=== PATIENT | male | born 1970 | race African-American/Black ===

== ENCOUNTER 2022-02-17 10:31 | Emergency (ER) | payer BC, SELFPAY ==
[2022-02-17 10:33] VITALS: BP 126/91; PULSE 67; RESP 14; TEMP 36.3; O2SAT 100; BMI 24.3
[2022-02-17 10:43] VITALS: BP 126/86; PULSE 78; RESP 14; TEMP 36.6; O2SAT 99
--- NOTE | 2022-02-17 10:43 | EDS_ITS ---
HPI History of Present Illness Chief Complaint: Lower Extremity Injury Informant: patient Onset/Context/Timing Onset: Yesterday Context: Sudden Onset (while playing basketball) Timing: Continuous Quality of Pain: Aching Location: R calf/achilles Current Severity: Mild Maximum Severity: Severe Worsened by: walking Relieved by: resting Associated Symptoms Associated Symptoms: Positive for Loss of Funtion; Negative for Parasthesia or W eakness Narrative Narrative: Patient states he was playing basketball last night, he suddenly pivoted to change directions and he states it felt like someone threw something or hit him in the right Achilles with sudden onset of pain and trouble walking after that. He suspects he ruptured it. No fall or direct trauma. PFSH PFSH no medical history Allergy/AdvReac Type Severity Reaction Status Date / Time No Known Allergies Allergy Verified 02/17/22 10:35 no surgical history ROS ROS ED Constitutional Constitutional ED: Denies chills or fever(s) Musculoskeletal Musculoskeletal: Reports extremity pain; Denies neck pain Integumentary Denies Abrasions, rash or wounds Neurologic Neurologic: Denies paresthesias or weakness EXAM Physical Exam Const Vital Signs: 02/17/22 10:33 Temperature 97.4 F L Temperature Source Temporal Pulse Rate 67 Respiratory Rate 14 Blood Pressure 126/91 H Blood Pressure Mean 102 Pulse Ox 100 Oxygen Delivery Method Room Air Positive well nourished and well developed General Appearance ED: well developed and NAD Neck full ROM and supple Back/Spine normal ROM and normal to inspection Extremity normal to inspection Extremity Narrative: Normal contour of Achilles on the right. Tender distal calf no edema, no palpable cords. With the patient prone, he has an abnormal Cifuentes test on the right. He has the inability to plantarflex normally but he can dorsiflex well. Neurovascularly intact distally. Neuro oriented x3, no focal motor deficits and no sensory deficits noted Sensorium / Orientation: alert Psych mental status grossly normal and thought process normal Skin no wounds Rashes: no rashes MDM MDM MDM Narrative Medical decision making narrative: Consistent with an Achilles rupture hopefully partial. Patient placed in an orthotic walking boot, given ibuprofen and appropriate discharge instructions with work restriction letter, and follow-up with orthopedics. Discharge Plan Triage Chief Complaint: Lower Extremity Injury ED Provider: Chavez Flores Dx/Rx/DC Orders Clinical Impression: Achilles rupture, right Instructions: Achilles Tendon Rupture Referrals: Knapic,Amos, DO [Med Staff - Active Staff] - As soon as possible (call for appt (or first available orthopaedic surgeon)) Activity Restrictions/Additional Instructions: Weightbearing as tolerated while in the boot, we recommend avoiding ladders, but if you can do your job while in the boot otherwise, then that is fine. Use the included work note if needed. Disposition Disposition: Home, Self Care
[2022-02-17] MEDS: Ibuprofen 600 MG Tablet PO (11:16)
== END 2022-02-17 11:21 | disposition home or self-care (01) ==
LOC: ED 11:03
PROVIDERS: Emergency Provider Emergency Medicine; Visit Provider Emergency Medicine
DX: S86.011A Strain of right Achilles tendon, initial encounter (principal); Y93.67 Activity, basketball
CPT/HCPCS: 99283

== ENCOUNTER 2022-05-29 07:30 | Outpatient (RCR) | payer BC, SELFPAY ==
--- NOTE | 2022-04-11 12:21 | HP.PTEVAL ---
Patient's Visit Information VARSHA GUZMAN is a 52 year old M referred to Physical Therapy by ROSS OTT with a diagnosis of Achilles Tendon Repair Feb 28, 2022. Date of Evaluation: 04/11/22 Physical Therapist: Deborah Greco DPT - Visit Plan Frequency: 2x /Week Duration: 4 Weeks Plan: Calling MD for Protocol. HEP Given IE: Gait Training, Ankle ROM Ex, Seated HR/TR, weight shifting in boot - Subjective Tore Achilles playing basketball Feb 23, 2022- repaired 7 weeks ago. Saw the MD about a week ago and he told him he is WBAT in his boot and does not have heel lift. Only wears the boot a couple of hours a day- clean the house- yesterday he used one crutch with the boot. If he is up and moving he has the boot on. He does have pain when he puts weight though the LE. He has some weird nerve issues- N/T or cramping- mostly in the foot but does travel up to incision. He does have some rare sharp shooting pain. Worst: 04/17 Agg: being up on it. Eases: putting lotion around the incision site. Most of the time he is painfree. He is more pretty active. He does go to the gym on a normal basis. Full I prior to injury. He has someone to take him too/from apts. 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 He feels that his mobility is getting better. Sleep: not disturbed. PMHx: dislocated left hip approx 30 years ago but it doesn't bother him Meds: none - Objective Posture: FH, RS- can correct with verbal cues. Gait: axillary crutches- step to gait pattern- reports discomfort. Observation: ill fitting boot- too large lots of movement- good healing of incision. HR/TR: seated. SLS: weight shift in boot. ROM: DF: neutral, PF: 40 degrees, Ever: 20 degrees, Inc: 40 degrees. Strength: Ankle: 4/5 in available range, Knee: 5/5. Girth: Mall: 26 Mets: 24 Figure 8: 52cm - Balance/Special Test Scores Lower Extremity Functional Score: 28 - Goals Goal 1:: Patient will be I with HEP and progression Goal Time Frame: 4-6 Weeks Goal 2:: Patient will ambulate >300 feet with a normalized gait pattern Goal Time Frame: 4-6 Weeks Goal 3:: Patient will SLS for 15 sec without LOB Goal Time Frame: 4-6 Weeks Goal 4:: Patient will HR/TR without UE A Goal Time Frame: 4-6 Weeks Goal 5:: Patient will report 80% improvement Goal Time Frame: 4-6 Weeks - Rehabilitation Potential Physical Therapy Diagnosis: Patient presents with hypomobility- he has decreased LE ROM, strength, flex, proprioception and muscular endurance s/p Achilles Tendon repair leading to abnormal gait pattern Rehabilitation Potential: Good - Anticipated Interventions Patient/Client Instruction: Educate patient on: Benefits of Fitness Program Therapeutic Exercise to Include: Strength training, Endurance training, Balance training, Coordination, Agility training, Body mechanics, Postural training, Flexibilty training, Gait and locomotor training, Neuromotor development, Passive ROM, Active ROM, Dynamic Lumbar Stabilization TENS: Yes Cryotherapy (ice pack, ice massage): Yes Thermo therapy (hot pack): Yes Ultrasound (thermal/non thermal): No Thank you for the opportunity to evaluate your patient. For Medicare and Medicare HMO plans, please review the plan of care and approve it. It will need to be FAXED BACK to us at [phone] for Medicare purposes. For Medicare only, by signing this I certify the plan of care. Please let me know if there are questions or concerns regarding this plan of care. Physician Signature: Date:
--- NOTE | 2022-05-11 11:37 | HP.PTREVAL ---
ROSS OTT, It has been my pleasure to treat VARSHA GUZMAN over the last 10 visits for Achilles Tendon Repair Feb 28, 2022. Please see the progress note below for an update on the physical therapy plan of care! Subjective: Patient reports that he feels the ankle is getting better. He had his last apt with MD on Saturday- he said he does not have another apt until the beginning of August- he said no running or jumping. He feels that he is still struggling with single leg activities. His whole calf is sore all the time- more like worked out. Current HEP: going to the gym a couple of times a week- last Saturday had a bad go with challenges. Gastroc stretching and SLS. 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 Objective/Function: Gait: slightly antalgic- decreased stance on the right LE. HR/TR: able with UE A and does weight shift slightly to the left. SLS: 10 sec but does have increased sway and reports discomfort and instability. ROM: DF: 5 degrees PF: 40 degrees, Inv: 50 deg Ever: 20 deg. Strength: 4+/5 throughout Plan Plan: 05/11/22: Continue PT for 2x a week for 4 weeks- no running or jumping per pt report of MD. Calling MD for Protocol. HEP Given IE: Gait Training, Ankle ROM Ex, Seated HR/TR, weight shifting in boot Balance/Gait/Functional tests - Balance/Special Test Scores Lower Extremity Functional Score: 28 Goals Goal 1:: Patient will be I with HEP and progression Goal Time Frame: 4-6 Weeks Goal Progress: Progressing Goal 2:: Patient will ambulate >300 feet with a normalized gait pattern Goal Time Frame: 4-6 Weeks Goal Progress: Progressing Goal 3:: Patient will SLS for 15 sec without LOB Goal Time Frame: 4-6 Weeks Goal Progress: Progressing Goal 4:: Patient will HR/TR without UE A Goal Time Frame: 4-6 Weeks Goal Progress: Progressing Goal 5:: Patient will report 80% improvement Goal Time Frame: 4-6 Weeks Goal Progress: Progressing Anticipated Interventions Patient/Client Instruction: Educate patient on: Benefits of Fitness Program Therapeutic Exercise to Include: Strength training, Endurance training, Balance training, Coordination, Agility training, Body mechanics, Postural training, Flexibilty training, Gait and locomotor training, Neuromotor development, Passive ROM, Active ROM, Dynamic Lumbar Stabilization TENS: Yes Cryotherapy (ice pack, ice massage): Yes Thermo therapy (hot pack): Yes Ultrasound (thermal/non thermal): No Please do not hesitate to contact me at [phone] by phone or if you have questions or concerns regarding this new plan of care! Sincerely, TYLER BentleyT
--- NOTE | 2022-10-22 12:33 | HP.PTDCSUM ---
Discharge Summary D/C summary: It has been my pleasure to treat VARSHA GUZMAN referred by ROSS OTT, with the diagnosis of Achilles Tendon Repair Feb 28, 2022 for a total of 15 visit(s). Discharge Date: Please see the following information for a summary of their discharge status. Subjective Subjective: Getting better. Just usual morning stiffness coming in. States compliant with HEP. Changed approved visit # per Monica - pt on [employer] Package and paying as he goes OOP. Pain Medial and lateral R ankle: Pain Intensity (Out of 10): 0 Overall Improvement % Improvement: 50 Objective Objective/Function: Pt conts to do very well in therapy for Right ankle stabilization, strength, and ROM. Increased height for fwd step down, working greater ROM. Goals Goal 1:: Patient will be I with HEP and progression Goal Progress: Progressing Goal 2:: Patient will ambulate >300 feet with a normalized gait pattern Goal Progress: Progressing Goal 3:: Patient will SLS for 15 sec without LOB Goal Progress: Progressing Goal 4:: Patient will HR/TR without UE A Goal Progress: Progressing Goal 5:: Patient will report 80% improvement Goal Progress: Progressing Plan Plan: 05/11/22: Continue PT for 2x a week for 4 weeks- no running or jumping per pt report of MD Calling MD for Protocol D/C Information d/c sentence: If there are questions or concerns regarding this patient's physical therapy, please feel free to call me at [phone]. Thank you for the referral of this patient. Sincerely, Deborah Greco, DPT Balance/Gait/Functional tests Balance/Special Test Scores Lower Extremity Functional Score: 50
== END 2022-05-29 19:00 | disposition home or self-care (01) ==
LOC: PT 07:30
DX: M25.371 Other instability, right ankle; S86.011D Strain of right Achilles tendon, subsequent encounter
CPT/HCPCS: 97110; 97162; 97164

== ENCOUNTER 2023-05-17 07:24 | Day surgery (SDC) | payer BC, SELFPAY ==
[2023-05-17] VITALS (8 sets, daily range): BP systolic 85–118; BP diastolic 49–76; PULSE 55–71; RESP 14–16; TEMP 36.1–36.6; O2SAT 96–100; BMI 25.7
--- OUTSIDE RECORDS SUMMARY | 2023-05-17 07:35 | XMS RPT_ITS | CCD ---
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 Automatic Name Role Phone ROSS OTT Attending Unavailable ROSS OTT Admitting Unavailable HAL SCHRADER Primary Care Unavailable IZZY SUBRAMANIAN Attending Unavailable Allergies Allergy Classification Reported Allergen(s) Allergy Type Date of Onset Reaction(s) Facility (1 source) Aspirin; Translations: [ASPIRIN] Drug Allergy 2 [facility] Rep[facility] (1 source) Ciprofloxacin; Translations: [CIPROFLOXACIN] Drug Allergy 2 [facility] Repository (1 source) PABA PLUS SUNSCREEN; Translations: [PABA PLUS SUNSCREEN] Propensity to adverse reactions to drug (disorder) 6 [facility] Repository Problems Problem Classification Problem Date Documented Da te Episodic/Chronic Sprains and strains (1 source) Strain of right Achilles tendon, initial encounter; Translations: [Rupture Achilles tendon, right, initial encounter] Onset: 02-21-2022 Episodic Results Test Name Value Interpretation Reference Range Facil ity Encounters Encounter Date Encounter Type Care Provider Facility Start: 04-19-2023 End: 04-22-2023 ambulatory IZZY SUBRAMANIAN Facility:[facility] Start: 02-21-2022 End: 02-21-2022 ambulatory ROSS OTT Facility:[facility] Payers Date Payer Category Payer Unknown [id number] Clinical Note 02-21-2022 Note Date & Type Note Facility 02-21-2022 Note HNO ID: [id number] Author: Rodolfo Whittaker APRN.COMMUNICATIONS ADMINISTRATOR Service: Anesthesiology Author Type: Nurse Design Technology Professor Type: Anesthesia Procedure Notes Filed: 02/21/2022 11:35 AM Note Text: ANESTHESIOLOGY PROCEDURE NOTE PIV General Information Procedure Start Time/Medication Administration: 02/21/2022 11:35 AM Patient Location: OR Staffing COMMUNICATIONS ADMINISTRATOR: Rodolfo Whittaker APRN.COMMUNICATIONS ADMINISTRATOR Performed by: COMMUNICATIONS ADMINISTRATOR Preparation Sterility Preparation: hand hygiene performed prior to procedure, sterile gloves, drapes, and procedure tray, gown used during line insertion, surgical cap used, mask used, sterile drape used during line insertion, skin prep agent completely dried prior to procedure Site Prep: alcohol Procedure Details Indication: need for IV access Needle Size/Type: 18 gauge angiocath Orientation: Right Location: Forearm Imaging Guidance Used: No SIGNATURE: Rodolfo Whittaker APRN.CRNA PATIENT NAME: Nathan Flores DATE: February 21, 2022 TIME: 11:34 AM CSN: [id number] [facility] Clinical Note 02-21-2022 Note Date & Type Note Facility 02-21-2022 Note HNO ID: [id number] Author: Wagner Holliday MD Service: ? Author Type: Anesthesiologist Type: Anesthesia Procedure Notes Filed: 02/21/2022 11:16 AM Note Text: ANESTHESIOLOGY PROCEDURE NOTE Peripheral Nerve Block General Information Procedure Start Time/Medication Administration: 02/21/2022 10:16 AM Procedure End time: 02/21/2022 10:20 AM Patient location during procedure: PACU Timeout Performed Pre-procedure: timeout performed Consent Obtained: Yes Patient identity confirmed: arm band and patient Reason for block: post-op pain management/at surgeon's request Staffing Anesthesiologist: Wagner Holliday MD Performed by: anesthesiologist Preparation Sterility Preparation: hand hygiene performed prior to procedure, sterile gloves, drapes, and procedure tray, surgical cap used, mask used, sterile drape used during line insertion, skin prep agent completely dried prior to procedure Site Prep: Chloraprep Pre-Procedure Neuro Exam Location: RLE Sensory: intact Motor: intact Procedure Details Patient Position: prone Monitoring: Pulse OX, EKG and NIBP Block Type Lower Extremity: popliteal Laterality: right Injection Technique: single-shot Ultrasound Guided: Yes Image in Chart: yes Local Infiltration: Yes Needle Needle Type: echogenic Needle Gauge: 20 G Needle Length: 83 mm Assessment Injection assessment: negative aspiration, no paresthesia on injection, incremental injection and local visualized surrounding nerve on ultrasound Paresthesia: immediately resolved Post-Procedure Neuro Exam Expected Regional Anesthesia: Yes Medications Administered ropivacaine (PF) 5 mg/mL (0.5 %) injection (NAROPIN) - peripheral nerve block 10 mL - 02/21/2022 10:16:00 AM dexamethasone sodium phosphate injection (DECADRON) - peripheral nerve block 4 mg - 02/21/2022 10:16:00 AM SIGNATURE: Wagner Holliday MD PATIENT NAME: Nathan Flores DATE: February 21, 2022 TIME: 11:14 AM CSN: [id number] [facility] Clinical Note 02-21-2022 Note Date & Type Note Facility 02-21-2022 Note HNO ID: [id number] Author: Rodolfo Whittaker APRN.COMMUNICATIONS ADMINISTRATOR Service: Anesthesiology Author Type: Nurse Design Technology Professor Type: Anesthesia Procedure Notes Filed: 02/21/2022 11:02 AM Note Text: ANESTHESIOLOGY PROCEDURE NOTE Airway General Information Procedure Start Time/Medication Administration: 02/21/2022 10:46 AM Patient location during procedure: OR Staffing COMMUNICATIONS ADMINISTRATOR: Rodolfo Whittaker APRN.COMMUNICATIONS ADMINISTRATOR Performed by: KLARISSA Indications and Patient Condition Indications for airway management: anesthesia Preoxygenated: yes anesthesia circuit Method: sleep Difficult Mask: No Final Airway Details Final airway type: endotracheal airway Final Endotracheal Airway: ETT Cuffed: yes Successful intubation technique: direct laryngoscopy Blade: Adam Blade size: #4 ETT size (mm): 7.5 Measured from: lips Measurement (cm): 22 Placement verified by: capnometry Cormack-Lehane Classification: grade IIa - partial view of glottis Number of attempts at approach: 1 Airway not difficult SIGNATURE: Rodolfo Whittaker APRN.COMMUNICATIONS ADMINISTRATOR PATIENT NAME: Nathan Flores DATE: February 21, 2022 TIME: 11:02 AM CSN: [id number] [facility] Summary Purpose Family History No Family History Records FoundNo Family History Records FoundNo Family History Records Found Advance Directives No Advanced Directives Records FoundNo Advanced Directives Records FoundNo Advanced Directives Records Found Additional Source Comments (unrecognized sect ion and content) No Status Records FoundNo Status Records FoundNo Status Records Found INFORMATION SOURCE (unrecogn ized section and content) DATE CREATED AUTHOR AUTHOR'S ORGANIZ ATION 04/22/2023 [facility] DATE CREATED AUTHOR AUTHOR'S ORGANIZ ATION 04/29/2023 [facility] FOR RECORDS PERTAINING TO PATIENTS WHO ARE OR HAVE BEEN ENROLLED IN A CHEMICAL DEPENDENCY/SUBSTANCEABUSE PROGRAM, SOME INFORMATION MAY BE OMITTED. This clinical summary was aggregated from multiple sources. Caution should be exercised in using it in the provision of clinical care. This summary normalizes information from multiple sources, and as a consequence, information in this document may materially change the coding, format and clinical context of patient data. In addition, data may be omitted in some cases. CLINICAL DECISIONS SHOULD BE BASED ON THE PRIMARY CLINICAL RECORDS. [employer] [facility]. provides no warranty or guarantee of the accuracy or completeness of information in this document.
[2023-05-17] MEDS: Lactated Ringers 1,000 ML 15 ML IV (07:57)
--- NOTE | 2023-05-17 08:05 | PCM.HP.STD ---
[facility] - General General Date of Service: 05/17/23 Chief Complaint: Screening for intestinal cancer [facility] Narrative VARSHA GUZMAN, is a 53 M who presents for screening colonoscopy today. He has not had a previous one. Family history is notable for a maternal uncle and maternal grandmother who had colon cancer. He presents via open access today. He enjoys good health. He is otherwise asymptomatic. [facility] Medical History Alcohol use Family hx of colon cancer Non-smoker Refusal of blood transfusions as patient is Restoration Wears glasses Home Medications omega-3 fatty acids-fish oil 360 mg-1,200 mg capsule (Fish Oil) 1 cap PO DAILY 04/03/23 [History Last Taken Unknown] bupropion HCl 100 mg tablet,12 hr sustained-release 100 mg PO DAILY 05/14/23 [History Last Taken 05/17/23] Allergy/AdvReac Type Severity Reaction Status Date / Time No Known Allergies Allergy Verified 05/17/23 07:55 Family History (Updated 04/03/23 @ 09:12 by Kavita Holliday) Mother Alcoholism Father Hypertension Grandmother Colon cancer Uncle Colon cancer Surgical History Achilles rupture History of Achilles tendon repair Social History adopted: No household members: spouse housing: house number of children: 0 current occupational status: employed 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 current occupational exposures/hazards: No pets and animals: Yes leisure activities: exercise, clubs and music history of recent travel: No sexually active: Yes Smoking Status: Never smoker alcohol intake: current details: weekly substance use type: does not use well-balanced diet: daily or most days caffeine: Yes eating out: 4 or more times/week during the past year weight has: increased > 10 lbs what type of physical activity do you participate in: weight training frequency: 3-4 times per week reed/muslim: Brennanhovah Witness seatbelt use: always do you feel safe at home: Yes ROS Constitutional Constitutional: Reports systems reviewed and no addt'l complaints, except as documented Cardiovascular Cardiovascular: Denies chest pain Respiratory/Chest Respiratory/Chest: Denies shortness of breath at rest Gastrointestinal Gastrointestinal: Denies abdominal pain, change in bowel habits, hematochezia or melena Vital Signs Vital Signs Vital Signs: 05/17/23 07:58 05/17/23 07:58 Temperature 97.8 F Temperature Source Temporal Pulse Rate 71 Respiratory Rate 16 Respiratory Pattern Normal Blood Pressure 118/76 Blood Pressure Mean 90 Blood Pressure Source Monitor Blood Pressure Position Semi-Fowlers Blood Pressure Location Left Arm Pulse Ox 100 Oxygen Delivery Method Room Air Weight Weight: 174 lb 2.643 oz Body Mass Index (BMI) 25.7 Physical Exam Const alert, oriented x3 and no apparent distress General Appearance: cooperative and comfortable Eyes General Eye: normal appearance of both eyes Neck General: normal visual inspection Chest inspection of chest normal Resp Effort and Inspection: able to speak in complete sentences and symmetric chest movement Auscultation: clear to auscultation bilaterally Cardio regular rate and regular rhythm GI soft to palpation, non-tender and non-distended Extremity no calf tenderness Neuro oriented x3 Psych thought process normal Assessment & Plan Assessment/Plan (1) Encounter for screening for malignant neoplasm of colon: PLAN: The patient presents for screening colonoscopy today with possible biopsy or polypectomy as indicated. He presents via open access. He has had an opportunity to ask and have questions answered. We will proceed as noted. Triston Peter M.D., F.A.C.S.
--- NOTE | 2023-05-17 09:00 | OP.CCLET_ITS ---
05/17/2023 Roberta Burnette [facility] [address] [place] [address] Re : Colonoscopy procedure for Nathan Hernnádez Dear Dr. Burnette This procedure was performed on Wednesday, May 17, 2023. My impressions and recommendations are as follows: Impressions : - Hemorrhoids found on perianal exam. - The entire examined colon is normal. - No specimens collected. Recommendations : - Discharge patient to home. - Resume previous diet. - Continue present medications. - Repeat colonoscopy in 10 years for screening purposes. My findings are described in the full procedure note, which is enclosed. If I can be of further assistance, please feel free to contact me at Doctor phone number(s): Work: . Sincerely, Triston Peter MD 05/17/2023 9:00:03 AM This report has been signed electronically.
--- NOTE | 2023-05-17 09:00 | OP.COLON_ITS ---
Patient Name: Nathan Hernández Procedure Date: 05/17/2023 8:34 AM Date of : 1970 Age: 53 Procedure: Colonoscopy Indications: Screening for colorectal malignant neoplasm Providers: Triston Peter MD Referring MD: Roberta Burnette Medicines: See the Anesthesia note for documentation of the administered medications Patient Profile: Last Colonoscopy: none. The patient's first colonoscopy is today. Complications: No immediate complications. Procedure: Pre-Anesthesia Assessment: - Prior to the procedure, a History and Physical was performed, and patient medications and allergies were reviewed. The patient's tolerance of previous anesthesia was also reviewed. The risks and benefits of the procedure and the sedation options and risks were discussed with the patient. All questions were answered, and informed consent was obtained. Prior Anticoagulants: The patient has taken no anticoagulant or antiplatelet agents. ASA Grade Assessment: I - A normal, healthy patient. After reviewing the risks and benefits, the patient was deemed in satisfactory condition to undergo the procedure. After I obtained informed consent, the scope was passed under direct vision. Throughout the procedure, the patient's blood pressure, pulse, and oxygen saturations were monitored continuously. The colonoscope was introduced through the anus and advanced to the cecum, identified by appendiceal orifice and ileocecal valve. The colonoscopy was performed without difficulty. The patient tolerated the procedure well. The quality of the bowel preparation was good. The ileocecal valve and the appendiceal orifice were photographed. Scope In: 8:43:49 AM Scope Withdrawal Time 0 hours 7 minutes 39 seconds Scope Out: 8:55:45 AM Total Procedure Duration Time 0 hours 11 minutes 56 seconds Findings: Hemorrhoids were found on perianal exam. The digital rectal exam was normal. Pertinent negatives include normal prostate (size, shape, and consistency). The colon (entire examined portion) appeared normal. Impression: - Hemorrhoids found on perianal exam. - The entire examined colon is normal. - No specimens collected. Recommendation: - Discharge patient to home. - Resume previous diet. - Continue present medications. - Repeat colonoscopy in 10 years for screening purposes. Procedure Code(s): --- Professional --- 01762, Colonoscopy, flexible; diagnostic, including collection of specimen(s) by brushing or washing, when performed (separate procedure) Diagnosis Code(s): --- Professional --- Z12.11, Encounter for screening for malignant neoplasm of colon K64.9, Unspecified hemorrhoids CPT copyright 2021 [employer]. All rights reserved. The codes documented in this report are preliminary and upon director reactor projects review may be revised to meet current compliance requirements. Triston Peter MD 05/17/2023 9:00:03 AM This report has been signed electronically. Number of Addenda: 0 Note Initiated On: 05/17/2023 8:34 AM
== END 2023-05-17 09:58 | disposition home or self-care (01) ==
LOC: EN 07:26 → AC 07:27
PROVIDERS: PCP Internal Medicine; Referring Provider Internal Medicine; Visit Provider Surgery
PROC: 0DJD8ZZ Inspection of Lower Intestinal Tract, Via Natural or Artificial Opening Endoscopic (ICD-10-PCS; CPT 45378; principal; 2023-05-17 08:25)
DX: Z12.11 Encounter for screening for malignant neoplasm of colon (principal); K64.9 Unspecified hemorrhoids; Z80.0 Family history of malignant neoplasm of digestive organs
CPT/HCPCS: 45378; J7120; J2405

== ENCOUNTER → 2024-10-23 | Outpatient (CLI) | payer BC, SELFPAY ==
--- NOTE | 2024-10-23 12:14 | RAD_ITS ---
PROCEDURE: CHEST PA AND LATERAL 10/23/2024 REASON FOR EXAM: CHRONIC COUGH TECHNIQUE: CHEST PA AND LATERAL COMPARISON: None FINDINGS: Hardware: None Heart: Heart size and configuration within normal limits. Mediastinum: Pulmonary vasculature and hilar structures are unremarkable. Trachea is midline. Lungs: Lungs are expanded and clear without evidence of atelectasis, consolidation, effusion or pneumonic infiltrate. Bones: No acute bony abnormality is noted. There is a subtle levoscoliosis of the lower thoracic spine and dextroscoliosis of the lumbar spine. Soft tissues are grossly unremarkable. RAD/Chest PA and Lateral IMPRESSION: No acute cardiopulmonary process is identified radiographically. Reading Location: [id number]
--- OUTSIDE RECORDS SUMMARY | 2024-10-23 16:33 | XMS RPT_ITS | CCD ---
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 EYES: No diplopia or blurry vision. CARDIOVASCULAR: No chest pain, dyspnea, palpitations, orthopnea, PND, ankle edema. PULM: No dyspnea, unexplained cough. GI: No dysphagia/odynophagia, problematic reflux, constipation, diarrhea, changes in stool habits, hematochezia, melena. : No new urinary complaints, including dysuria, gross hematuria or pyuria. NEURO: No new balance problems, peripheral weakness/paresthesias or numbness of concern. MUSC-SKEL: swelling RT ankle an ahcilles positive renae test pain posteiro achilles PSY: No concerns regarding depression, anxiety or panic. INTEGUMENTARY: No new skin changes (rash, new or changing mole, new growth) Objective PHYSICAL EXAM: BP 119/78 Temp (Src) 98.2 (Temporal Artery) Resp 16 SpO2 100% O2 Therapy: Room Air Physical Exam Performed Lungs CABL Heart RRR Pulses +2/4 DP PT bl Neuro All sensations intact bl DERM no open wounds rt lower leg plus 1 non pitting edema MS MS 3/5 RT achilles plantar flexin, palpable defect Achilles RT DATA: Diagnostic tests reviewed for today's visit: Most recent labs Assessment/Plan Rupture RIght achilles tendon Plan Repair achilles tendon RT OR SIGNATURE: Curt Ott DPM PATIENT NAME: Varsha Flores DATE: February 21, 2022 TIME: 9:49 AM Normal [facility] NURSING PROGon 02-21-2022 NURSING PROG HNO ID: [id number] Author: Karlie Pritchett RN Service: Nursing Author Type: Registered Nurse Type: Nursing Progress Note Filed: 02/21/2022 11:57 AM Note Text: Dr. Holliday at bedside for Ultrasound guided Right popliteal nerve block. RN at bedside, pt monitored throughout, BP 118/70 Pulse 65 Temp 36.8 ?C (98.2 ?F) (Temporal Artery) Resp 16 SpO2 100% . Pt medicated with 2mg versed IV. Pt tolerated procedure without difficulty. Family called to bedside at completion of procedure. Report to SENIOR TECHNICAL RECRUITER Normal [facility] OPERATIVE NOon 02-21-2022 OPERATIVE NO HNO ID: [id number] Author: Curt Ott DPM Service: Podiatry Author Type: Physician Type: Operative Report Filed: 02/22/2022 9:12 AM Note Text: - Operative Report VARSHA FLORES : 1970 AGE: 52. SEX: M PATIENT TYPE: A HOSP SVC: PODI LOCATION: ATTENDING PHYSICIAN: Curt Ott D.P.M. CSN NUMBER: [id number] DATE OF SURGERY/PROCEDURE: 02/21/2022 INCISION/PROCEDURE START TIME: 11:03 AM INCISION CLOSE/PROCEDURE END TIME: 12:02 PM PREOPERATIVE DIAGNOSIS: Ruptured Achilles tendon, right ankle; ankle Achilles tendinosis; ankle pain. POSTOPERATIVE DIAGNOSIS: Same SURGEON: Curt Ott D.P.M. FELLER SEAM OPERATOR: 1Ligia Fisher, PGY 3. 2. Second customer assistant, Dr. Gayle, PGY 1. SURGERY/PROCEDURE: 1. Repair of Achilles tendon. 2. Graft application with Interfyl connective tissue matrix graft. 3. Application of posterior splint. ANESTHESIA: General in the prone position. INDICATIONS FOR SURGERY: This patient ruptured his Achilles tendon playing basketball this past Saturday. On Saturday, he went to the ER. He was put in a boot. He presented to the office on Saturday. We set him up after evaluating him for surgery for repair of the Achilles tendon. We are also going to use Interfyl connective tissue graft and we went over alternatives, risks, complications, and benefits of procedure including possible need for revision, lengthening and we talked about the need for strict nonweightbearing, then physical therapy, he understood. In the preoperative area, consent was signed. HEMOSTASIS: We did not go up on the tourniquet. ESTIMATED BLOOD LOSS: Less than 20 mL. DRAINS: No drains. SPECIMENS: No specimens. COMPLICATIONS: No complications. MATERIALS: PARS [employer] system. DESCRIPTION OF PROCEDURE: The patient was brought to the operating room and placed on the operating table in supine position. Upon administration of general anesthesia, the patient had the right foot and ankle scrubbed, prepped, and draped in a normal sterile fashion. It was noted that the patient was put in the prone position before we did this. Next, at this time, after positioned the patient in proper position, we then scrubbed, prepped, and draped in normal sterile fashion. It was noted that we were doing more of a minimal invasive approach to this. We made a transverse incision at the ruptured area. We bluntly dissected down. It was noted that we did not go up on the tourniquet and we were doing this mostly noninvasive so at this time, we incised through the skin, through the fascia. We then cauterized all bleeders as necessary, bluntly dissected down. We opened up the paratenon, there was noted to be a 90% rupture of the Achilles tendon. There was a small area partially attached on the most medial aspect, which we then released. It was noted that we then freshened the Achilles tendon edges. There was noted to be a small little hematoma at the rupture site that we cleaned out. Next, at this time, we irrigated the soft tissues. There was noted to be healthy paratenon, healthy tendon otherwise. Next, at this time, we then started preparing for our repair of the tendon. We used the PARS technique from [employer] and put the jig up proximally into the proximal rupture site and then we ran our suture following their technique, which bring sutures through and then once the sutures were through on both sides of the tendon, we pulled the jig down and out, which then bring the suture down. Now we had a nice proximal stump. We then worked distal. We made 2 incisions on the medial and lateral aspects of the Achilles tendon and then we drilled into the calcaneus and tapped this drill. Next, at this time, we put in a suture passer through the distal rupture some, which would then have a vessel loop which will pull our proximal suture through the distal stump and then we anchored into the heel bone. So, we then entered the suture passer, grabbed distally as stated and we pulled the sutures through the distal stump. Next, at this time, we then tensioned with a SwiveLock anchor into the calcaneus with the ankle about in 10-15 degrees of plantar flexed, bringing the coapted ends together. We then locked this in place and we cut the excess suture. We then repeated this in the same way on the lateral side. Next, after this we had excellent repair of the tendons, the ends were coapted. We are going to keep the foot and ankle position in about 10 degrees plantar flex for splint application. However, before we did this, we irrigated with copious amounts of normal saline. We then closed the paratenon with 3-0 Vicryl, subcutaneous tissue with 4-0 Vicryl, and the skin with 3-0 nylon in a simple suturing fashion. Then, we closed our ankle portals with 3-0 nylon as well. Next, at this time, we then injected 3 mL of Interfyl human connective tissue into the Achilles (more content not included)... Normal [facility] Vital Signs Date Time Vital Sign Value Performing Clinician Aleki kadie 10-22-2024 08:03-0400 Body height 175.[address] Roberta Burnette MD Work Phone: [facility] 10-22-2024 08:03-0400 Body mass index (BMI) [Ratio] 25.5 kg/m2 Dr. Roberta Burnette MD Work Phone: [facility] 10-22-2024 08:03-0400 Body temperature 98.4 [degF] Dr. Roberta Burnette MD Work Phone: [facility] 10-22-2024 08:03-0400 Body weight 78.[address] Roberta Burnette MD Work Phone: [facility] 10-22-2024 08:03-0400 Diastolic blood pressure 80 mm[Hg] Dr. Roberta Burnette MD Work Phone: [facility] 10-22-2024 08:03-0400 Heart rate 70 /min Dr. Roberta Burnette MD Work Phone: [facility] 10-22-2024 08:03-0400 Respiratory rate 16 /min Dr. Roberta Burnette MD Work Phone: [facility] 10-22-2024 08:03-0400 SaO2% (BldA) [Mass fraction] 97 % Dr. Roberta Burnette MD Work Phone: [facility] 10-22-2024 08:03-0400 Systolic blood pressure 116 mm[Hg] Dr. Roberta Burnette MD Work Phone: [facility] 09-25-2024 13:07-0400 Body height 175.3 cm Izzy Bonner MD Work Phone: [facility] 09-25-2024 13:07-0400 Body mass index (BMI) [Ratio] 25.99 kg/m2 Izzy Bonner MD Work Phone: [facility] 09-25-2024 13:07-0400 Body weight 79.83 kg Izzy Bonner MD Work Phone: [facility] 09-25-2024 13:07-0400 Respiratory rate 16 /min Izzy Bonner MD Work Phone: [facility] 06-19-2024 14:03-0400 Body height 177.8 cm Izzy Bonner MD Work Phone: [facility] 06-19-2024 14:03-0400 Body mass index (BMI) [Ratio] 25.08 kg/m2 Izzy oBnner MD Work Phone: [facility] 06-19-2024 14:03-0400 Body weight 79.29 kg Izzy Bonner MD Work Phone: [facility] 06-19-2024 14:03-0400 Diastolic blood pressure 80 mm[Hg] Izzy Bonner MD Work Phone: [facility] 06-19-2024 14:03-0400 Heart rate 68 /min Izzy Bonner MD Work Phone: [facility] 06-19-2024 14:03-0400 Systolic blood pressure 129 mm[Hg] Izzy Bonner MD Work Phone: [facility] 04-10-2024 09:33-0500 Body height 175.3 cm Izzy Bonner MD Work Phone: [facility] 04-10-2024 09:33-0500 Body mass index (BMI) [Ratio] 25.1 kg/m2 Izzy Bonner MD Work Phone: [facility] 04-10-2024 09:33-0500 Body weight 77.11 kg Izzy Bonner MD Work Phone: [facility] 04-10-2024 09:33-0500 Respiratory rate 14 /min Izzy Bonner MD Work Phone: [facility] 08-29-2023 15:06-0400 Body height 175.3 cm Izzy Bonner MD Work Phone: [facility] 08-29-2023 15:06-0400 Body mass index (BMI) [Ratio] 25.1 kg/m2 Izzy Bonner MD Work Phone: [facility] 08-29-2023 15:06-0400 Body weight 77.11 kg Izzy Bonner MD Work Phone: [facility] 08-29-2023 15:06-0400 Respiratory rate 16 /min Izzy Bonner MD Work Phone: [facility] 05-17-2023 09:25-0500 Body temperature 97.6 [degF] Dr. Roberta Burnette Work Phone: [facility] 05-17-2023 09:25-0500 Diastolic blood pressure 71 mm[Hg] Dr. Roberta Burnette Work Phone: [facility] 05-17-2023 09:25-0500 Heart rate 62 /min Dr. Roberta Burnette Work Phone: [facility] 05-17-2023 09:25-0500 Respiratory rate 16 /min Dr. Roberta Burnette Work Phone: [facility] 05-17-2023 09:25-0500 SaO2% (BldA) [Mass fraction] 99 % Dr. Roberta Burnette Work Phone: [facility] 05-17-2023 09:25-0500 Systolic blood pressure 99 mm[Hg] Dr. Roberta Burnette Work Phone: [facility] 05-17-2023 07:58-0500 Body height 175.[address] Roberta Burnette Work Phone: [facility] 05-17-2023 07:58-0500 Body mass index (BMI) [Ratio] 25.7 kg/m2 Dr. Roberta Burnette Work Phone: [facility] 05-17-2023 07:58-0500 Body weight [address] Roberta Burnette Work Phone: [facility] 04-19-2023 13:13-0500 Body height 175.3 cm Izzy Bonner MD Work Phone: [facility] 04-19-2023 13:13-0500 Body weight 79.38 kg Izzy Bonner MD Work Phone: [facility] 04-19-2023 13:13-0500 Respiratory rate 16 /min Izzy Bonner MD Work Phone: [facility] 04-03-2023 09:15-0500 Body mass index (BMI) [Ratio] 26.6 kg/m2 Dr. Roberta Burnette Work Phone: [facility] 04-03-2023 09:15-0500 Body weight 81.[address] Roberta Burnette Work Phone: [facility] 02-17-2022 10:43-0500 Body temperature 97.8 [degF] [facility] Work Phone: 02-17-2022 10:43-0500 Diastolic blood pressure 86 mm[Hg] [facility] Work Phone: 02-17-2022 10:43-0500 Heart rate 78 /min [facility] Work Phone: 02-17-2022 10:43-0500 Respiratory rate 14 /min [facility] Work Phone: 02-17-2022 10:43-0500 SaO2% (BldA) [Mass fraction] 99 % [facility] Work Phone: 02-17-2022 10:43-0500 Systolic blood pressure 126 mm[Hg] [facility] Work Phone: 02-17-2022 10:33-0500 Body height 175.26 cm [facility] Work Phone: 02-17-2022 10:33-0500 Body mass index (BMI) [Ratio] 24.3 kg/m2 [facility] Work Phone: 02-17-2022 10:33-0500 Body weight 74.84 kg [facility] Work Phone: Encounters Encounter Date Encounter Type Care Provider Facility Start: 10-22-2024 End: 10-22-[address] Roberta Burnette MD Work Phone: -[facility] Start: 10-22-2024 End: 10-22-[address] Roberta Burnette MD -[facility] Work Phone: Start: 09-25-2024 End: 09-25-2024 ambulatory IZZY BONNER Facility:[facility] Start: 09-25-2024 End: 09-25-2024 Patient encounter procedure Izzy Bonner MD Work Phone: [facility] Comment on above: Generalized anxiety disorder (Primary Dx); Major depressive disorder, recurrent episode, moderate (HCC); Pornography addiction Start: 07-31-2024 End: 07-31-2024 ambulatory IZZY BONNER Facility:[facility] Start: 06-19-2024 End: 06-19-2024 ambulatory IZZY BONNER Facility:[facility] Start: 06-19-2024 End: 06-19-2024 Patient encounter procedure Izzy Bonner MD Work Phone: [facility] Comment on above: Major depressive dis order, recurrent episode, moderate (HCC) (Primary Dx); Generalized anxiety disorder; Pornography addiction Start: 04-10-2024 End: 04-10-2024 ambulatory IZZY BONNER Facility:[facility] Start: 04-10-2024 End: 04-10-2024 Patient encounter procedure Izzy Bonner MD Work Phone: [facility] Comment on above: Major depressive dis order, recurrent episode, moderate (HCC) (Primary Dx); Generalized anxiety disorder; Pornography addiction Start: 04-09-2024 End: 04-09-2024 Refill Izzy Bonner MD Work Phone: [facility] Comment on above: Refill Request Start: 08-29-2023 End: 08-29-2023 Patient encounter procedure Izzy Bonner MD Work Phone: [facility] Comment on above: Major depressive dis order, recurrent episode, moderate (HCC) (Primary Dx); Generalized anxiety disorder Start: 07-04-[address] Bautista Burnette MD Work Phone: [facility] Start: 07-04-2023 End: 07-04-2023 ambulatory Roberta [facility] Facility:[facility] Start: 05-31-2023 End: 05-31-2023 Patient encounter procedure Izzy Bonner MD Work Phone: [facility] Comment on above: Severe recurrent virgilio or depression without psychotic features (HCC) (Primary Dx); Generalized anxiety disorder Start: 05-17-2023 End: 05-17-2023 ambulatory Roberta Vasile Facility:[facility] Start: 05-17-2023 Non-patient / Non-visit Dr. Jody Burnette Work Phone: [facility] Start: 05-17-2023 End: 05-17-2023 Admission to same day surgery center Dr. Robreta Burnette Work Phone: [facility] Work Phone: Start: 05-17-2023 End: 05-17-[address] Roberta Burnette Work Phone: [facility] Work Phone: Start: 04-19-2023 End: 04-22-2023 ambulatory IZZY BONNER Facility:[facility] Start: 04-19-2023 Patient encounter procedure Izzy Bonner MD Work Phone: [facility] Comment on above: Severe recurrent virgilio or depression without psychotic features (HCC) (Primary Dx); Generalized anxiety disorder Start: 04-03-2023 ambulatory Roberta Burnette Facility :[facility] Start: 04-03-2023 Non-patient / Non-visit Dr. Jody Burnette Work Phone: [facility] Work Phone: Start: 02-21-2022 End: 02-21-2022 ambulatory [facility] Facility:[facility] Start: 02-17-2022 End: 02-17-2022 Emergency department patient visit [facility]Emer[facility] Department Procedures Date Procedure Procedure Detail Performing Clinician Start: 05-17-[address] Roberta Burnette Work Phone: Start: 06-03-2015 Lipid 1996 panel - S jazz or Plasma Izzy Bonner MD Work Phone: Plan of Treatment Date Care Activity Detail Author Start: 05-24-2025 Urine microalbumin profile DTaP,Tdap,Td Vaccine (2 - Td or Tdap) [facility] Start: 12-07-2024 Influenza vaccination Influenza Vaccine (Season Ended) [facility] Start: 10-23-2024 End: 10-23-2024 Patient encounter procedure 10/23/2024 1:30 PM EDT Psych [facility] [address] [place] [id number] Izzy Bonner MD [address] [address] [facility] Start: 07-31-2024 End: 07-31-2024 Patient encounter procedure 07/31/2024 1:00 PM EDT Psych Office Visit [facility] [address] [address] Izzy Bonner MD [address] [address] [facility] Start: 04-10-2024 End: 04-10-2024 Patient encounter procedure 04/10/2024 9:30 AM EST Office Visit [facility] [address] [address] Izzy Bonner MD [address] [address] [facility] Start: 12-08-2023 Covid-19 Vaccine ( season) Covid-19 Vaccine ( season) [facility] Start: 12-08-2023 Influenza vaccination [facility] Start: 05-17-2023 Patient discharge [facility] Start: 12-07-2022 Covid-19 Vaccine ( season) Covid-19 Vaccine ( season) [facility] Start: 12-07-2022 Influenza vaccination [facility] Start: 2021 Pneumococcal Vaccine: 50+ (1 of 1 - PCV) Pneumococcal Vaccine: 50+ (1 of 1 - PCV) [facility] Start: 2021 Shingrix Vaccine (1 of 2) Shingrix Vaccine (1 of 2) [facility] Start: 06-03-2020 Lipid panel Lipid Screening [facility] Start: 06-03-2020 Prostate specific antigen measurement Prostate Cancer Screening Discussion [facility] Start: 06-03-2018 Diabetes Screening Diabetes Screening [facility] Start: 01-14-2016 Screening for malignant neoplasm of colon [facility] Start: 1990 Hepatitis B Vaccine (1 of 3 - 19+ 3-dose series) Hepatitis B Vaccine (1 of 3 - 19+ 3-dose series) [facility] Start: 1989 Hepatitis C screening Hepatitis C Screening [facility] Start: 1989 HIV screening HIV Screening [facility] Start: 1970 Hepatitis B Vaccine (1 of 3 - 3-dose series) Hepatitis B Vaccine (1 of 3 - 3-dose series) [facility] Colonoscopy [facility] Patient Education Achilles Tendon Rupture [facility] Work Phone: Patient referral [facility] Work Phone: [facility] Immunizations Immunization Date Immunization Notes Care Provider Felicia calles 05-24-2015 tetanus toxoid, redu bryce diphtheria toxoid, and acellular pertussis vaccine, adsorbed Izzy Bonner MD Work Phone: [facility] Work Phone: Payers Date Payer Category Payer Self-pay 2023 Unknown [id number] 2018 [employer] BLUE ACCE PPO [id number] 2018 Unknown [id number] 2018 Unknown [employer] ACC[employer] PPO [id number] 2018-Present [phone] [address] [place] [address] PPO [id number] Unknown [facility] PACKAGE PLAN [id number] Unknown [id number] Unknown [id number] Unknown [id number] Unknown [id number] Social History Date Type Detail Facility Start: 02-17-2022 End: 05-14-2023 Tobacco smoking status MAIS Unknown if ever smoked [facility] Start: 1970 Sex Assigned At Male [facility] Start: 04-19-2023 End: 07-04-2023 Tobacco smoking status NHIS Never smoked tobacco [facility] Work Phone: Start: 04-19-2023 Tobacco use and exposure Smokeless tobacco non-user [facility] Work Phone: Start: 04-19-2023 End: 04-10-2024 Alcohol intake Current drinker of alcohol (finding) [facility] Start: 04-19-2023 End: 07-31-2024 History of Social function [facility] Start: 04-19-2023 End: 07-31-2024 Tobacco use panel [facility] National Score (1-10 0), lower number is lower risk Not on file [facility] Start: 06-14-2015 Alcohol Comment 5-6 drinks weekly Cl [facility] Start: 1970 Sex Assigned At Not on file [facility] Start: 09-25-2024 Alcoholic beverage intake Ex-drinker (finding) [facility] Medical Equipment Procedure Code Equipment Code Equipment Origin al Text Equipment Identifier Dates [id number] Im plant - [id number] Start: 02-21-2022 Imp Pars Suture Tape System - [id number] Start: 02-21-2022 Internalbrace Li gament Augmentation Repair Kit [id number] Start: 02-21-2022 Goals Date Patient Goal Desired Activity /State Mental Status Date Assessment Result Facility 05-17-2023 Cognitive function Touch/Shaking [facility] Work Phone: Clinical Notes 02-21-2022 to 09-25-2024 Izzy Bonner MD - 09/25/2024 1:00 PM Izzy Coon MD - 06/19/2024 2:00 PM Izzy Coon MD - 04/10/2024 9:30 AM ESTTelephone Encounter - Deborah Starkey MA - 04/09/2024 12:25 PM EST Note Date & Type Note Facility 09-25-2024 History of Presen t illness Narrative Images from the original note were not included. 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 Patient was accompanied by Self relapsed with porn once per week to every couple of days since 1m he was sober for 4 months prior to that immense guilt depressed tearful continues to be abstinent from pornography since 4 months has cravings - becoming less and less still struggles with traumatic memories with his mother difficulty letting go - but actually getting better Alc - 2 beer per week not in therapy - used to see [facility] Systems DEPRESSION: admits to Depression, rumination, psychomotor retardation, low motivation, guilty, anhedonia - severe Appetite: good Suicidal ideations: No Passive thoughts of wishing not to exist: No Access to fire arms: No GENERALIZED ANXIETY DISORDER: denies worries about various aspects of life, gets tense, irritability, inattentive, achy, and sleeplessness over worries. The symptoms have been going on for Years Symptoms overall are: worse PANIC ATTACKS: denies periods of intense anxiety accompanied with heart palpitations, shortness of breath, shaking, mind racing PTSD: admits to history of trauma that comes back as flashbacks, distressful recollections or memories , nightmares, hypervigilance, and avoidance Trauma was: emotional Timeline of Trauma: childhood still hinders outcome of mental health OCD: denies both obsessions and compulsions Sleep Schedule/Sleep ROS: Sleep: Patient Has restorative sleep Total perceived sleep time: 7-9h Excessive daytime sleepiness: No If yes - accidents or near accidents due to drowsy driving: No Patient Data Questionnaires [place] Sleepiness Scale (ESS) No data to display Generalized Anxiety Disorder Scale (DALLAS-7) 06/19/2024 07/31/2024 09/25/2024 [place] - 7 SCORES Score 11 2 14 (0-4) minimal anxiety, (5-9) mild anxiety, (10-14) moderate anxiety, (15-21) severe anxiety Patient Health Questionnaire (PHQ-9) 06/19/2024 07/31/2024 09/25/2024 PHQ-9 Score 6 2 8 (0-4) minimal depression, (5-9) mild depression, (10-14) moderate depression, (15-19) moderately severe depression, (20-27) severe depression Interim Changes in History: Changes in family history: No Changes in Social history: no Changes in Medical history: no 05/31/23 - settling in with job 08/29/23 - was let go from the job and he found a new job 04/10/23 - has addiction to porn since early on Medications buPROPion SR (WELLBUTRIN SR) 150 mg 12 hr tablet Take 2 tablets by mouth once daily. ciprofloxacin HCl (CIPRO) 500 mg tablet Take 500 mg in office prior to procedure-to be administered per clinical support. (Patient not taking: Reported on 09/03/2018) Allergies ALLERGIES Allergen Reactions Aspirin Intolerance Nausea and vomiting Ciprofloxacin Intolerance diarrhea Paba Plus Sunscreen Swelling, Other: See Comments blisters Vitals Resp 16 Ht 175.3 cm (5' 9) Wt 79.8 kg (176 lb) BMI 25.99 kg/m MSE The patient appeared stated age. Casually dressed. good hygiene. Behavior and attitude was pleasant, friendly and cooperative. Psychomotor down. Eye contact good. Speech wnl. Mood dysthymic. Affect restricted. Thought process perseverative. Thought content neg for any obsessions and/or delusions. The patient denied any suicidal or homicidal ideations, plan or intent. Auditory/visual/audio visual hallucinations not present. Attention and concentration was good. Insight and judgement were good. Patient was alert and oriented. Memory was grossly intact. Abstract reasoning was good. EXAM Physical Examination: garth weight for age Musculoskeletal: upper extremity strength within normal limits Neurological: gait and station normal Sensation: grossly intact Bilateral hand tremor: absent Risk Assessment: Suicide Risk Level: HML: low RATIONALE FOR RISK LEVEL (see above): Ideation: denies; Plan: denies; Intent: denies; Suicidal or Self-harm Behaviors:denies; Access to Firearms: denies; Other Risk Factors: denies; Protective Factors: supportive Risk of harming others: Aggression: low Homicide: low ASSESSMENT/PLAN: 1. Severe recurrent major depression without psychotic features (HCC) - ICD9: 296.33, ICD10: F33.2 (primary diagnosis) cont Wellbutrin SR to 300mg daily no SE noted Tolerating it well Trial of Prozac Explained r/b/a of Prozac, including worsening of depression and SI, weight gain, sexual dysfunction, etc. Patient acknowledged understanding and agreed to take it. start at 20mg 2. Generalized anxiety disorder - ICD9: 300.02, ICD10: F41.1 improving 3. 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 Requested Prescriptions Signed Prescriptions Disp Refills buPROPion SR (WELLBUTRIN SR) 150 mg 12 hr tablet 180 tablet 0 Sig: Take 2 tablets by mouth once daily. FLUoxetine (PROZAC) 20 mg capsule 30 capsule 1 Sig: Take 1 capsule by mouth once daily. Izzy Bonner MD I spent a total of 40 minutes on the date of the service which included preparing to see the patient, [id number] patient care, completing clinical documentation, obtaining and/or reviewing separately obtained history, performing a medically appropriate examination, counseling and educating the patient/family/caregiver, ordering medications, tests, or procedures, communicating with other HCPs (not separately reported), independently interpreting results (not separately reported), communicating results to the patient/family/caregiver, and care coordination (not separately reported). This included counseling for 18 mins CBT anxiety motivational therapy Follow-up in: 1m or sooner Izzy Bonner MD documented in this encounter [facility] 09-25-2024 Note HNO ID: [id number] Author: IZZY BONNER MD Service: ? 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 Patient was accompanied by Self relapsed with porn once per week to every couple of days since 1m he was sober for 4 months prior to that immense guilt depressed tearful continues to be abstinent from pornography since 4 months has cravings - becoming less and less still struggles with traumatic memories with his mother difficulty letting go - but actually getting better Alc - 2 beer per week not in therapy - used to see [facility] in [place] Psychiatric Review of Systems DEPRESSION: admits to Depression, rumination, psychomotor retardation, low motivation, guilty, anhedonia - severe Appetite: good Suicidal ideations: No Passive thoughts of wishing not to exist: No Access to fire arms: No GENERALIZED ANXIETY DISORDER: denies worries about various aspects of life, gets tense, irritability, inattentive, achy, and sleeplessness over worries. The symptoms have been going on for Years Symptoms overall are: worse PANIC ATTACKS: denies periods of intense anxiety accompanied with heart palpitations, shortness of breath, shaking, mind racing PTSD: admits to history of trauma that comes back as flashbacks, distressful recollections or memories , nightmares, hypervigilance, and avoidance Trauma was: emotional Timeline of Trauma: childhood still hinders outcome of mental health OCD: denies both obsessions and compulsions Sleep Schedule/Sleep ROS: Sleep: Patient Has restorative sleep Total perceived sleep time: 7-9h Excessive daytime sleepiness: No If yes - accidents or near accidents due to drowsy driving: No Patient Data Questionnaires [place] Sleepiness Scale (ESS) No data to display Generalized Anxiety Disorder Scale ([place]-7) 06/19/2024 07/31/2024 09/25/2024 [place] - 7 SCORES Score 11 2 14 (0-4) minimal anxiety, (5-9) mild anxiety, (10-14) moderate anxiety, (15-21) severe anxiety Patient Health Questionnaire (PHQ-9) 06/19/2024 07/31/2024 09/25/2024 PHQ-9 Score 6 2 8 (0-4) minimal depression, (5-9) mild depression, (10-14) moderate depression, (15-19) moderately severe depression, (20-27) severe depression Interim Changes in History: Changes in family history: No Changes in Social history: no Changes in Medical history: no 05/31/23 - settling in with job 08/29/23 - was let go from the job and he found a new job 04/10/23 - has addiction to porn since early on Medications buPROPion SR (WELLBUTRIN SR) 150 mg 12 hr tablet Take 2 tablets by mouth once daily. ciprofloxacin HCl (CIPRO) 500 mg tablet Take 500 mg in office prior to procedure-to be administered per clinical support. (Patient not taking: Reported on 09/03/2018) Allergies ALLERGIES Allergen Reactions Aspirin Intolerance Nausea and vomiting Ciprofloxacin Intolerance diarrhea Paba Plus Sunscreen Swelling, Other: See Comments blisters Vitals Resp 16 Ht 175.3 cm (5' 9) Wt 79.8 kg (176 lb) BMI 25.99 kg/m? MSE The patient appeared stated age. Casually dressed. good hygiene. Behavior and attitude was pleasant, friendly and cooperative. Psychomotor down. Eye contact good. Speech wnl. Mood dysthymic. Affect restricted. Thought process perseverative. Thought content neg for any obsessions and/or delusions. The patient denied any suicidal or homicidal ideations, plan or intent. Auditory/visual/audio visual hallucinations not present. Attention and concentration was good. Insight and judgement were good. Patient was alert and oriented. Memory was grossly intact. Abstract reasoning was good. EXAM Physical Examination: garth weight for age Musculoskeletal: upper extremity strength within normal limits Neurological: gait and station normal Sensation: grossly intact Bilateral hand tremor: absent Risk Assessment: Suicide Risk Level: HML: low RATIONALE FOR RISK LEVEL (see above): Ideation: denies; Plan: denies; Intent: denies; Suicidal or Self-harm Behaviors:denies; Access to Firearms: denies; Other Risk Factors: denies; Protective Factors: supportive Risk of harming others: Aggression: low Homicide: low ASSESSMENT/PLAN: 1. Severe recurrent major depression without psychotic features (HCC) - ICD9: 296.33, ICD10: F33.2 (primary diagnosis) cont Wellbutrin SR to 300mg daily no SE noted Tolerating it well Trial of Prozac Explained r/b/a of Prozac, including worsening of depression and SI, weight gain, sexual dysfunction, etc. Patient acknowledged understanding and agreed to take it. start at 20mg 2. Generalized anxiety disorder - ICD9: 300.02, ICD10: F41.1 improving 3. 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 [facility] 07-31-2024 Note HNO ID: [id number] Author: IZZY BONNER MD Service: ? 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 Self continues to be abstinent from pornography since 4 months has cravings - becoming less and less still struggles with traumatic memories with his mother difficulty letting go - but actually getting better Alc - 1 beer per week Psychiatric Review of Systems DEPRESSION: admits to Depression, rumination, psychomotor retardation, low motivation, guilty, anhedonia - moderate - chronic - improvinhg Appetite: good Suicidal ideations: No Passive thoughts of wishing not to exist: No Access to fire arms: No GENERALIZED ANXIETY DISORDER: denies worries about various aspects of life, gets tense, irritability, inattentive, achy, and sleeplessness over worries. The symptoms have been going on for Years Symptoms overall are: at baseline PANIC ATTACKS: denies periods of intense anxiety accompanied with heart palpitations, shortness of breath, shaking, mind racing PTSD: admits to history of trauma that comes back as flashbacks, distressful recollections or memories , nightmares, hypervigilance, and avoidance Trauma was: emotional Timeline of Trauma: childhood distressful recollection OCD: denies both obsessions and compulsions Sleep Schedule/Sleep ROS: Sleep: Patient Has restorative sleep Total perceived sleep time: 7-9h Excessive daytime sleepiness: No If yes - accidents or near accidents due to drowsy driving: No Patient Data Questionnaires [place] Sleepiness Scale (ESS) No data to display Generalized Anxiety Disorder Scale ([place]-7) 08/29/2023 04/10/2024 06/19/2024 [place] - 7 SCORES Score 13 7 11 (0-4) minimal anxiety, (5-9) mild anxiety, (10-14) moderate anxiety, (15-21) severe anxiety Patient Health Questionnaire (PHQ-9) 04/10/2024 04/10/2024 06/19/2024 PHQ-9 Score 6 10 6 (0-4) minimal depression, (5-9) mild depression, (10-14) moderate depression, (15-19) moderately severe depression, (20-27) severe depression Interim Changes in History: Changes in family history: No Changes in Social history: no Changes in Medical history: yes 05/31/23 - settling in with job 08/29/23 - was let go from the job and he found a new job 04/10/23 - has addiction to porn since early on ROS General: denies any fever, chills or nightsweats Eye: no recent change in vision Respiratory: denies cough, sputum or shortness of breath Cardiac: denies chest pain, palpitations, dyspnea without exertion Gastrointestinal: denies heartburn abdominal pain, nausea, vomiting, diarrhea or constipation Musculoskeletal: denies any joint aches or pains. Denies swelling of joints. Denies back pain Neurological: denies headaches. Denies syncope. Denies tingling or numbness. Denies hand shaking. Denies focal weakness or paresis. Able to walk Hematology: denies easy bruising Medications buPROPion SR (WELLBUTRIN SR) 150 mg 12 hr tablet Take 2 tablets by mouth once daily. ciprofloxacin HCl (CIPRO) 500 mg tablet Take 500 mg in office prior to procedure-to be administered per clinical support. (Patient not taking: Reported on 09/03/2018) Allergies ALLERGIES Allergen Reactions Aspirin Intolerance Nausea and vomiting Ciprofloxacin Intolerance diarrhea Paba Plus Sunscreen Swelling, Other: See Comments blisters Vitals BP 122/79 Pulse 82 Wt 80 kg (176 lb 6.4 oz) BMI 25.31 kg/m? MSE The patient appeared stated age. Casually dressed. good hygiene. Behavior and attitude was pleasant, friendly and cooperative. Psychomotor improved. Eye contact good. Speech wnl. Mood dysthymic. Affect improving. Thought process linear. Thought content neg for any obsessions and/or delusions. The patient denied any suicidal or homicidal ideations, plan or intent. Auditory/visual/audio visual hallucinations not present. Attention and concentration was good. Insight and judgement were good. Patient was alert and oriented. Memory was grossly intact. Abstract reasoning was good. EXAM Physical Examination: garth weight for age Musculoskeletal: upper extremity strength within normal limits Neurological: gait and station normal Sensation: grossly intact Bilateral hand tremor: absent Risk Assessment: Suicide Risk Level: HML: low RATIONALE FOR RISK LEVEL (see above): Ideation: denies; Plan: denies; Intent: denies; Suicidal or Self-harm Behaviors:denies; Access to Firearms: denies; Other Risk Factors: denies; Protective Factors: supportive Risk of harming others: Aggression: low Homicide: low ASSESSMENT/PLAN: 1. Severe recurrent major depression without psychotic features (HCC) - ICD9: 296.33, ICD10: F33.2 (p (more content not included)... [facility] 06-19-2024 History of Presen t illness Narrative Images from the original note were not included. 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 Self completely sober from pornography or any such indulgement since 2.5 months this is the longest period of sobriety he has had so far however it is unmasked a lot of sadness also has been very irritable still struggles with traumatic memories with his mother difficulty letting go stopped drinking altogether - april - last month - 1-2 drinks per week he used to see a counselor until 8m ago Psychiatric Review of Systems DEPRESSION: admits to Depression, rumination, psychomotor retardation, low motivation, guilty, anhedonia - moderate - chronic Appetite: good Suicidal ideations: No Passive thoughts of wishing not to exist: No Access to fire arms: No GENERALIZED ANXIETY DISORDER: denies worries about various aspects of life, gets tense, irritability, inattentive, achy, and sleeplessness over worries. The symptoms have been going on for Years Symptoms overall are: at baseline PANIC ATTACKS: denies periods of intense anxiety accompanied with heart palpitations, shortness of breath, shaking, mind racing PTSD: admits to history of trauma that comes back as flashbacks, distressful recollections or memories , nightmares, hypervigilance, and avoidance Trauma was: emotional Timeline of Trauma: childhood distressful recollection OCD: denies both obsessions and compulsions Sleep Schedule/Sleep ROS: Sleep: Patient Has restorative sleep awakenings in the early hours and his mind races at that time - 2 out of 3 nights - has been happening since last 1 year - thinks it was due to his job Total perceived sleep time: 6-8h Excessive daytime sleepiness: No If yes - accidents or near accidents due to drowsy driving: No Patient Data Questionnaires [place] Sleepiness Scale (ESS) No data to display Generalized Anxiety Disorder Scale ([place]-7) 08/29/2023 04/10/2024 06/19/2024 [place] - 7 SCORES Score 13 7 11 (0-4) minimal anxiety, (5-9) mild anxiety, (10-14) moderate anxiety, (15-21) severe anxiety Patient Health Questionnaire (PHQ-9) 04/10/2024 04/10/2024 06/19/2024 PHQ-9 Score 6 10 6 (0-4) minimal depression, (5-9) mild depression, (10-14) moderate depression, (15-19) moderately severe depression, (20-27) severe depression Interim Changes in History: Changes in family history: No Changes in Social history: no Changes in Medical history: yes 05/31/23 - settling in with job 08/29/23 - was let go from the job and he found a new job 04/10/23 - has addiction to porn since early on ROS General: denies any fever, chills or nightsweats Eye: no recent change in vision Respiratory: denies cough, sputum or shortness of breath Cardiac: denies chest pain, palpitations, dyspnea without exertion Gastrointestinal: denies heartburn abdominal pain, nausea, vomiting, diarrhea or constipation Musculoskeletal: denies any joint aches or pains. Denies swelling of joints. Denies back pain Neurological: denies headaches. Denies syncope. Denies tingling or numbness. Denies hand shaking. Denies focal weakness or paresis. Able to walk Hematology: denies easy bruising Medications buPROPion SR (WELLBUTRIN SR) 200 mg 12 hr tablet Take 1 tablet by mouth once daily. ciprofloxacin HCl (CIPRO) 500 mg tablet Take 500 mg in office prior to procedure-to be administered per clinical support. (Patient not taking: Reported on 09/03/2018) Allergies ALLERGIES Allergen Reactions Aspirin Intolerance Nausea and vomiting Ciprofloxacin Intolerance diarrhea Paba Plus Sunscreen Swelling, Other: See Comments blisters Vitals BP 129/80 Pulse 68 Ht 177.8 cm (5' 10) Wt 79.3 kg (174 lb 12.8 oz) BMI 25.08 kg/m MSE The patient appeared stated age. Casually dressed. good hygiene. Behavior and attitude was pleasant, friendly and cooperative. Psychomotor improved. Eye contact good. Speech wnl. Mood dysthymic. Affect restricted. Thought process linear. Thought content neg for any obsessions and/or delusions. The patient denied any suicidal or homicidal ideations, plan or intent. Auditory/visual/audio visual hallucinations not present. Attention and concentration was good. Insight and judgement were good. Patient was alert and oriented. Memory was grossly intact. Abstract reasoning was good. EXAM Physical Examination: garth weight for age Musculoskeletal: upper extremity strength within normal limits Neurological: gait and station normal Sensation: grossly intact Bilateral hand tremor: absent Risk Assessment: Suicide Risk Level: HML: low RATIONALE FOR RISK LEVEL (see above): Ideation: denies; Plan: denies; Intent: denies; Suicidal or Self-harm Behaviors:denies; Access to Firearms: denies; Other Risk Factors: denies; Protective Factors: supportive Risk of harming others: Aggression: low Homicide: low ASSESSMENT/PLAN: 1. Severe recurrent major depression without psychotic features (HCC) - ICD9: 296.33, ICD10: F33.2 (primary diagnosis) increase Wellbutrin SR to 300mg daily no SE noted Tolerating it well 2. Generalized anxiety disorder - ICD9: 300.02, ICD10: F41.1 improving restart therapy 3. Addiction to Porn cont abstinence Izzy Bonner MD The following approved medication requests have been transmitted electronically. Requested Prescriptions Signed Prescriptions Disp Refills buPROPion SR (WELLBUTRIN SR) 150 mg 12 hr tablet 180 tablet 0 Sig: Take 2 tablets by mouth once daily. Izzy Bonner MD I spent a total of 38 minutes on the date of the service which included preparing to see the patient, [id number] patient care, completing clinical documentation, obtaining and/or reviewing separately obtained history, performing a medically appropriate examination, counseling and educating the patient/family/caregiver, ordering medications, tests, or procedures, communicating with other HCPs (not separately reported), independently interpreting results (not separately reported), communicating results to the patient/family/caregiver, and care coordination (not separately reported). This included counseling for 18 mins CBT anxiety motivational therapy Follow-up in: 3-4m or sooner Izzy Bonner MD documented in this encounter [facility] 06-19-2024 Note HNO ID: [id number] Author: IZZY BONNER MD Service: ? 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 Self completely sober from pornography or any such indulgement since 2.5 months this is the longest period of sobriety he has had so far however it is unmasked a lot of sadness also has been very irritable still struggles with traumatic memories with his mother difficulty letting go stopped drinking altogether - april - last month - 1-2 drinks per week he used to see a counselor until 8m ago Psychiatric Review of Systems DEPRESSION: admits to Depression, rumination, psychomotor retardation, low motivation, guilty, anhedonia - moderate - chronic Appetite: good Suicidal ideations: No Passive thoughts of wishing not to exist: No Access to fire arms: No GENERALIZED ANXIETY DISORDER: denies worries about various aspects of life, gets tense, irritability, inattentive, achy, and sleeplessness over worries. The symptoms have been going on for Years Symptoms overall are: at baseline PANIC ATTACKS: denies periods of intense anxiety accompanied with heart palpitations, shortness of breath, shaking, mind racing PTSD: admits to history of trauma that comes back as flashbacks, distressful recollections or memories , nightmares, hypervigilance, and avoidance Trauma was: emotional Timeline of Trauma: childhood distressful recollection OCD: denies both obsessions and compulsions Sleep Schedule/Sleep ROS: Sleep: Patient Has restorative sleep awakenings in the early hours and his mind races at that time - 2 out of 3 nights - has been happening since last 1 year - thinks it was due to his job Total perceived sleep time: 6-8h Excessive daytime sleepiness: No If yes - accidents or near accidents due to drowsy driving: No Patient Data Questionnaires [place] Sleepiness Scale (ESS) No data to display Generalized Anxiety Disorder Scale ([place]-7) 08/29/2023 04/10/2024 06/19/2024 [place] - 7 SCORES Score 13 7 11 (0-4) minimal anxiety, (5-9) mild anxiety, (10-14) moderate anxiety, (15-21) severe anxiety Patient Health Questionnaire (PHQ-9) 04/10/2024 04/10/2024 06/19/2024 PHQ-9 Score 6 10 6 (0-4) minimal depression, (5-9) mild depression, (10-14) moderate depression, (15-19) moderately severe depression, (20-27) severe depression Interim Changes in History: Changes in family history: No Changes in Social history: no Changes in Medical history: yes 05/31/23 - settling in with job 08/29/23 - was let go from the job and he found a new job 04/10/23 - has addiction to porn since early on ROS General: denies any fever, chills or nightsweats Eye: no recent change in vision Respiratory: denies cough, sputum or shortness of breath Cardiac: denies chest pain, palpitations, dyspnea without exertion Gastrointestinal: denies heartburn abdominal pain, nausea, vomiting, diarrhea or constipation Musculoskeletal: denies any joint aches or pains. Denies swelling of joints. Denies back pain Neurological: denies headaches. Denies syncope. Denies tingling or numbness. Denies hand shaking. Denies focal weakness or paresis. Able to walk Hematology: denies easy bruising Medications buPROPion SR (WELLBUTRIN SR) 200 mg 12 hr tablet Take 1 tablet by mouth once daily. ciprofloxacin HCl (CIPRO) 500 mg tablet Take 500 mg in office prior to procedure-to be administered per clinical support. (Patient not taking: Reported on 09/03/2018) Allergies ALLERGIES Allergen Reactions Aspirin Intolerance Nausea and vomiting Ciprofloxacin Intolerance diarrhea Paba Plus Sunscreen Swelling, Other: See Comments blisters Vitals BP 129/80 Pulse 68 Ht 177.8 cm (5' 10) Wt 79.3 kg (174 lb 12.8 oz) BMI 25.08 kg/m? MSE The patient appeared stated age. Casually dressed. good hygiene. Behavior and attitude was pleasant, friendly and cooperative. Psychomotor improved. Eye contact good. Speech wnl. Mood dysthymic. Affect restricted. Thought process linear. Thought content neg for any obsessions and/or delusions. The patient denied any suicidal or homicidal ideations, plan or intent. Auditory/visual/audio visual hallucinations not present. Attention and concentration was good. Insight and judgement were good. Patient was alert and oriented. Memory was grossly intact. Abstract reasoning was good. EXAM Physical Examination: garth weight for age Musculoskeletal: upper extremity strength within normal limits Neurological: gait and station normal Sensation: grossly intact Bilateral hand tremor: absent Risk Assessment: Suicide Risk Level: HML: low RATIONALE FOR RISK LEVEL (see above): Ideation: denies; Monik (more content not included)... [facility] 04-10-2024 History of Presen t illness Narrative Images from the original note were not included. 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 Self always liked porn this is his go to for stress and anxiety feels this is wrong he has shame with it it is hurting the relationship with his his confident gets hurt has hidden it from his sometimes he wants to work on it feels powerless sx better in the last 6m after he switched to a better job stopped drinking altogether - 2 weeks ago he used to drink 3 days per week - never more then 2 drinks per day he used to see a counselor until 6m ago Psychiatric Review of Systems DEPRESSION: admits to Depression, rumination, psychomotor retardation, low motivation, guilty, anhedonia - moderate - chronic Appetite: good Suicidal ideations: No Passive thoughts of wishing not to exist: No Access to fire arms: No GENERALIZED ANXIETY DISORDER: denies worries about various aspects of life, gets tense, irritability, inattentive, achy, and sleeplessness over worries. The symptoms have been going on for Years Symptoms overall are: at baseline PANIC ATTACKS: denies periods of intense anxiety accompanied with heart palpitations, shortness of breath, shaking, mind racing PTSD: admits to history of trauma that comes back as flashbacks, distressful recollections or memories , nightmares, hypervigilance, and avoidance Trauma was: emotional Timeline of Trauma: childhood distressful recollection OCD: denies both obsessions and compulsions Sleep Schedule/Sleep ROS: Sleep: Patient Has restorative sleep awakenings in the early hours and his mind races at that time - 2 out of 3 nights - has been happening since last 1 year - thinks it was due to his job Total perceived sleep time: 6-8h Excessive daytime sleepiness: No If yes - accidents or near accidents due to drowsy driving: No Patient Data Questionnaires [place] Sleepiness Scale (ESS) No data to display Generalized Anxiety Disorder Scale ([place]-7) 08/29/2023 04/10/2024 [place] - 7 SCORES Score 13 7 (0-4) minimal anxiety, (5-9) mild anxiety, (10-14) moderate anxiety, (15-21) severe anxiety Patient Health Questionnaire (PHQ-9) 08/29/2023 04/10/2024 PHQ-9 Score 6 6 (0-4) minimal depression, (5-9) mild depression, (10-14) moderate depression, (15-19) moderately severe depression, (20-27) severe depression Interim Changes in History: Changes in family history: No Changes in Social history: no Changes in Medical history: yes 05/31/23 - settling in with job 08/29/23 - was let go from the job and he found a new job 04/10/23 - has addiction to porn since early on ROS General: denies any fever, chills or nightsweats Eye: no recent change in vision Respiratory: denies cough, sputum or shortness of breath Cardiac: denies chest pain, palpitations, dyspnea without exertion Gastrointestinal: denies heartburn abdominal pain, nausea, vomiting, diarrhea or constipation Musculoskeletal: denies any joint aches or pains. Denies swelling of joints. Denies back pain Neurological: denies headaches. Denies syncope. Denies tingling or numbness. Denies hand shaking. Denies focal weakness or paresis. Able to walk Hematology: denies easy bruising Medications buPROPion SR (WELLBUTRIN SR) 100 mg 12 hr tablet Take 1 tablet by mouth once daily. ciprofloxacin HCl (CIPRO) 500 mg tablet Take 500 mg in office prior to procedure-to be administered per clinical support. (Patient not taking: Reported on 09/03/2018) Allergies ALLERGIES Allergen Reactions Aspirin Intolerance Nausea and vomiting Ciprofloxacin Intolerance diarrhea Paba Plus Sunscreen Swelling, Other: See Comments blisters Vitals Resp 14 Ht 175.3 cm (5' 9) Wt 77.1 kg (170 lb) BMI 25.10 kg/m MSE The patient appeared stated age. Casually dressed. good hygiene. Behavior and attitude was pleasant, friendly and cooperative. Psychomotor improved. Eye contact good. Speech wnl. Mood dysthymic. Affect restricted. Thought process linear. Thought content neg for any obsessions and/or delusions. The patient denied any suicidal or homicidal ideations, plan or intent. Auditory/visual/audio visual hallucinations not present. Attention and concentration was good. Insight and judgement were good. Patient was alert and oriented. Memory was grossly intact. Abstract reasoning was good. EXAM Physical Examination: garth weight for age Musculoskeletal: upper extremity strength within normal limits Neurological: gait and station normal Sensation: grossly intact Bilateral hand tremor: absent Risk Assessment: Suicide Risk Level: HML: low RATIONALE FOR RISK LEVEL (see above): Ideation: denies; Plan: denies; Intent: denies; Suicidal or Self-harm Behaviors:denies; Access to Firearms: denies; Other Risk Factors: denies; Protective Factors: supportive Risk of harming others: Aggression: low Homicide: low ASSESSMENT/PLAN: 1. Severe recurrent major depression without psychotic features (HCC) - ICD9: 296.33, ICD10: F33.2 (primary diagnosis) increase Wellbutrin SR to 200mg daily no SE noted Tolerating it well 2. Generalized anxiety disorder - ICD9: 300.02, ICD10: F41.1 improving restart therapy 3. Addiction to Porn processed iin therapy avid neg emotios attached to porn join SHEA Bonner MD I spent a total of 40 minutes on the date of the service which included preparing to see the patient, [id number] patient care, completing clinical documentation, obtaining and/or reviewing separately obtained history, performing a medically appropriate examination, counseling and educating the patient/family/caregiver, ordering medications, tests, or procedures, communicating with other HCPs (not separately reported), independently interpreting results (not separately reported), communicating results to the patient/family/caregiver, and care coordination (not separately reported). This included counseling for 18 mins CBT anxiety motivational therapy Follow-up in: 3-4m or sooner Izzy Bonner MD documented in this encounter [facility] 04-10-2024 Note HNO ID: [id number] Author: IZZY BONNER MD Service: ? 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 accompanied by Self always liked porn this is his go to for stress and anxiety feels this is wrong he has shame with it it is hurting the relationship with his his confident gets hurt has hidden it from his sometimes he wants to work on it feels powerless sx better in the last 6m after he switched to a better job stopped drinking altogether - 2 weeks ago he used to drink 3 days per week - never more then 2 drinks per day he used to see a counselor until 6m ago Psychiatric Review of Systems DEPRESSION: admits to Depression, rumination, psychomotor retardation, low motivation, guilty, anhedonia - moderate - chronic Appetite: good Suicidal ideations: No Passive thoughts of wishing not to exist: No Access to fire arms: No GENERALIZED ANXIETY DISORDER: denies worries about various aspects of life, gets tense, irritability, inattentive, achy, and sleeplessness over worries. The symptoms have been going on for Years Symptoms overall are: at baseline PANIC ATTACKS: denies periods of intense anxiety accompanied with heart palpitations, shortness of breath, shaking, mind racing PTSD: admits to history of trauma that comes back as flashbacks, distressful recollections or memories , nightmares, hypervigilance, and avoidance Trauma was: emotional Timeline of Trauma: childhood distressful recollection OCD: denies both obsessions and compulsions Sleep Schedule/Sleep ROS: Sleep: Patient Has restorative sleep awakenings in the early hours and his mind races at that time - 2 out of 3 nights - has been happening since last 1 year - thinks it was due to his job Total perceived sleep time: 6-8h Excessive daytime sleepiness: No If yes - accidents or near accidents due to drowsy driving: No Patient Data Questionnaires [place] Sleepiness Scale (ESS) No data to display Generalized Anxiety Disorder Scale ([place]-7) 08/29/2023 04/10/2024 [place] - 7 SCORES Score 13 7 (0-4) minimal anxiety, (5-9) mild anxiety, (10-14) moderate anxiety, (15-21) severe anxiety Patient Health Questionnaire (PHQ-9) 08/29/2023 04/10/2024 PHQ-9 Score 6 6 (0-4) minimal depression, (5-9) mild depression, (10-14) moderate depression, (15-19) moderately severe depression, (20-27) severe depression Interim Changes in History: Changes in family history: No Changes in Social history: no Changes in Medical history: yes 05/31/23 - settling in with job 08/29/23 - was let go from the job and he found a new job 04/10/23 - has addiction to porn since early on ROS General: denies any fever, chills or nightsweats Eye: no recent change in vision Respiratory: denies cough, sputum or shortness of breath Cardiac: denies chest pain, palpitations, dyspnea without exertion Gastrointestinal: denies heartburn abdominal pain, nausea, vomiting, diarrhea or constipation Musculoskeletal: denies any joint aches or pains. Denies swelling of joints. Denies back pain Neurological: denies headaches. Denies syncope. Denies tingling or numbness. Denies hand shaking. Denies focal weakness or paresis. Able to walk Hematology: denies easy bruising Medications buPROPion SR (WELLBUTRIN SR) 100 mg 12 hr tablet Take 1 tablet by mouth once daily. ciprofloxacin HCl (CIPRO) 500 mg tablet Take 500 mg in office prior to procedure-to be administered per clinical support. (Patient not taking: Reported on 09/03/2018) Allergies ALLERGIES Allergen Reactions Aspirin Intolerance Nausea and vomiting Ciprofloxacin Intolerance diarrhea Paba Plus Sunscreen Swelling, Other: See Comments blisters Vitals Resp 14 Ht 175.3 cm (5' 9) Wt 77.1 kg (170 lb) BMI 25.10 kg/m? MSE The patient appeared stated age. Casually dressed. good hygiene. Behavior and attitude was pleasant, friendly and cooperative. Psychomotor improved. Eye contact good. Speech wnl. Mood dysthymic. Affect restricted. Thought process linear. Thought content neg for any obsessions and/or delusions. The patient denied any suicidal or homicidal ideations, plan or intent. Auditory/visual/audio visual hallucinations not present. Attention and concentration was good. Insight and judgement were good. Patient was alert and oriented. Memory was grossly intact. Abstract reasoning was good. EXAM Physical Examination: garth weight for age Musculoskeletal: upper extremity strength within normal limits Neurological: gait and station normal Sensation: grossly intact Bilateral hand tremor: absent Risk Assessment: Suicide Risk Level: HML: low RATIONALE FOR (more content not included)... [facility] 04-09-2024 Telephone encounter Note Patient is scheduled [facility] 04-09-2024 Miscellaneous Notes Patient is scheduled Left voicemail to let him know he needs the appointment for the refill he needs an appointment Requested Prescriptions Pending Prescriptions Disp Refills buPROPion SR (WELLBUTRIN SR) 100 mg 12 hr tablet 90 tablet 1 Sig: Take 1 tablet by mouth once daily. Patient called has roughly a week left of meds. Would you like me to get him set up for another appointment? PT last visit: 08/29/23 F/u in 3-4m or sooner documented in this encounter [facility] 04-09-2024 Telephone encounter Note Left voicemail to let him know he needs the appointment for the refill [facility] 04-09-2024 Telephone encounter Note he needs an appointment [facility] 04-09-2024 Telephone encounter Note Requested Prescriptions Pending Prescriptions Disp Refills buPROPion SR (WELLBUTRIN SR) 100 mg 12 hr tablet 90 tablet 1 Sig: Take 1 tablet by mouth once daily. Patient called has roughly a week left of meds. Would you like me to get him set up for another appointment? PT last visit: 08/29/23 F/u in 3-4m or sooner [facility] 08-29-2023 History of Presen t illness Narrative Images from the original note were not included. 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 he was let go as his work wanted him to more hours the way it presented to him was discriminatory the job was very stressful he already got a new job that he is excited about he is going to get every Saturday off so feels better anxiety that was up has come back down 's father moved close to them no SE sleeping good no Se still very quick to crying sometimes has overwhelming sadness Psychiatric Review of Systems DEPRESSION: admits to Depression, rumination, psychomotor retardation, low motivation, guilty, anhedonia - moderate - always lies underneath - sometimes comes to the surface Appetite: good Suicidal ideations: No Passive thoughts of wishing not to exist: No Access to fire arms: No GENERALIZED ANXIETY DISORDER: denies worries about various aspects of life, gets tense, irritability, inattentive, achy, and sleeplessness over worries. The symptoms have been going on for Years Symptoms overall are: at baseline PANIC ATTACKS: denies periods of intense anxiety accompanied with heart palpitations, shortness of breath, shaking, mind racing PTSD: admits to history of trauma that comes back as flashbacks, distressful recollections or memories , nightmares, hypervigilance, and avoidance Trauma was: emotional Timeline of Trauma: childhood distressful recollection OCD: denies both obsessions and compulsions Sleep Schedule/Sleep ROS: Sleep: Patient Has restorative sleep awakenings in the early hours and his mind races at that time - 2 out of 3 nights - has been happening since last 1 year - thinks it was due to his job Total perceived sleep time: 6-8h Excessive daytime sleepiness: No If yes - accidents or near accidents due to drowsy driving: No Patient Data Questionnaires [place] Sleepiness Scale (ESS) No data to display Generalized Anxiety Disorder Scale ([place]-7) No data to display (0-4) minimal anxiety, (5-9) mild anxiety, (10-14) moderate anxiety, (15-21) severe anxiety Patient Health Questionnaire (PHQ-9) No data to display (0-4) minimal depression, (5-9) mild depression, (10-14) moderate depression, (15-19) moderately severe depression, (20-27) severe depression Interim Changes in History: Changes in family history: No Changes in Social history: Yes Changes in Medical history: No 05/31/23 - settling in with job 08/29/23 - was let go from the job and he found a new job ROS General: denies any fever, chills or nightsweats Eye: no recent change in vision Respiratory: denies cough, sputum or shortness of breath Cardiac: denies chest pain, palpitations, dyspnea without exertion Gastrointestinal: denies heartburn abdominal pain, nausea, vomiting, diarrhea or constipation Musculoskeletal: denies any joint aches or pains. Denies swelling of joints. Denies back pain Neurological: denies headaches. Denies syncope. Denies tingling or numbness. Denies hand shaking. Denies focal weakness or paresis. Able to walk Hematology: denies easy bruising Medications buPROPion SR (WELLBUTRIN SR) 100 mg 12 hr tablet Take 1 tablet by mouth once daily. ciprofloxacin HCl (CIPRO) 500 mg tablet Take 500 mg in office prior to procedure-to be administered per clinical support. (Patient not taking: Reported on 09/03/2018) Allergies ALLERGIES Allergen Reactions Aspirin Intolerance Nausea and vomiting Ciprofloxacin Intolerance diarrhea Paba Plus Sunscreen Swelling, Other: See Comments blisters Vitals Resp 16 Ht 175.3 cm (5' 9) Wt 79.4 kg (175 lb) BMI 25.84 kg/m MSE The patient appeared stated age. Casually dressed. good hygiene. Behavior and attitude was pleasant, friendly and cooperative. Psychomotor improved. Eye contact good. Speech wnl. Mood dysthymic. Affect restricted. Thought process linear. Thought content neg for any obsessions and/or delusions. The patient denied any suicidal or homicidal ideations, plan or intent. Auditory/visual/audio visual hallucinations not present. Attention and concentration was good. Insight and judgement were good. Patient was alert and oriented. Memory was grossly intact. Abstract reasoning was good. EXAM Physical Examination: garth weight for age Musculoskeletal: upper extremity strength within normal limits Neurological: gait and station normal Sensation: grossly intact Bilateral hand tremor: absent Risk Assessment: Suicide Risk Level: HML: low RATIONALE FOR RISK LEVEL (see above): Ideation: denies; Plan: denies; Intent: denies; Suicidal or Self-harm Behaviors:denies; Access to Firearms: denies; Other Risk Factors: denies; Protective Factors: supportive Risk of harming others: Aggression: low Homicide: low ASSESSMENT/PLAN: 1. Severe recurrent major depression without psychotic features (HCC) - ICD9: 296.33, ICD10: F33.2 (primary diagnosis) cont Wellbutrin SR 100mg daily no SE noted Tolerating it well he feels that his crying spells will improve once he starts the new job so doesn't want to go up on Wellbutrin at this time The following approved medication requests have been transmitted electronically. Requested Prescriptions Signed Prescriptions Disp Refills buPROPion SR (WELLBUTRIN SR) 100 mg 12 hr tablet 90 tablet 1 Sig: Take 1 tablet by mouth once daily. Izzy Bonner MD 2. Generalized anxiety disorder - ICD9: 300.02, ICD10: F41.1 improving restart therapy Izzy Bonner MD *sees Tirso Webb for therapy - sees him as needed I spent a total of 37 minutes on the date of the service which included preparing to see the patient, [id number] patient care, completing clinical documentation, obtaining and/or reviewing separately obtained history, performing a medically appropriate examination, counseling and educating the patient/family/caregiver, ordering medications, tests, or procedures, communicating with other HCPs (not separately reported), independently interpreting results (not separately reported), communicating results to the patient/family/caregiver, and care coordination (not separately reported). 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 The symptoms have been going on for Years Symptoms overall are: better PANIC ATTACKS: denies periods of intense anxiety accompanied with heart palpitations, shortness of breath, shaking, mind racing PTSD: admits to history of trauma that comes back as flashbacks, distressful recollections or memories , nightmares, hypervigilance, and avoidance Trauma was: emotional Timeline of Trauma: childhood OCD: denies both obsessions and compulsions Sleep Schedule/Sleep ROS: Sleep: Patient Has restorative sleep Total perceived sleep time: 8h Excessive daytime sleepiness: No If yes - accidents or near accidents due to drowsy driving: No Patient Data Questionnaires [place] Sleepiness Scale (ESS) No flowsheet data found. Generalized Anxiety Disorder Scale ([place]-7) No flowsheet data found.(0-4) minimal anxiety, (5-9) mild anxiety, (10-14) moderate anxiety, (15-21) severe anxiety Patient Health Questionnaire (PHQ-9) No flowsheet data found.(0-4) minimal depression, (5-9) mild depression, (10-14) moderate depression, (15-19) moderately severe depression, (20-27) severe depression Interim Changes in History: Changes in family history: No Changes in Social history: Yes Changes in Medical history: No 05/31/23 - settling in with job ROS General: denies any fever, chills or nightsweats Eye: no recent change in vision Respiratory: denies cough, sputum or shortness of breath Cardiac: denies chest pain, palpitations, dyspnea without exertion Gastrointestinal: denies heartburn abdominal pain, nausea, vomiting, diarrhea or constipation Musculoskeletal: denies any joint aches or pains. Denies swelling of joints. Denies back pain Neurological: denies headaches. Denies syncope. Denies tingling or numbness. Denies hand shaking. Denies focal weakness or paresis. Able to walk Hematology: denies easy bruising Medications buPROPion SR (WELLBUTRIN SR) 100 mg 12 hr tablet Take 1 tablet by mouth once daily. ciprofloxacin HCl (CIPRO) 500 mg tablet Take 500 mg in office prior to procedure-to be administered per clinical support. (Patient not taking: Reported on 09/03/2018) Allergies ALLERGIES Allergen Reactions Aspirin Intolerance Nausea and vomiting Ciprofloxacin Intolerance diarrhea Paba Plus Sunscreen Swelling, Other: See Comments blisters Vitals There were no vitals taken for this visit. MSE The patient appeared stated age. Casually dressed. good hygiene. Behavior and attitude was pleasant, friendly and cooperative. Psychomotor improved. Eye contact good. Speech wnl. Mood dysthymic. Affect restricted. Thought process linear. Thought content neg for any obsessions and/or delusions. The patient denied any suicidal or homicidal ideations, plan or intent. Auditory/visual/audio visual hallucinations not present. Attention and concentration was good. Insight and judgement were good. Patient was alert and oriented. Memory was grossly intact. Abstract reasoning was good. EXAM Physical Examination: garth weight for age Musculoskeletal: upper extremity strength within normal limits Neurological: gait and station normal Sensation: grossly intact Bilateral hand tremor: absent Risk Assessment: Suicide Risk Level: HML: low RATIONALE FOR RISK LEVEL (see above): Ideation: denies; Plan: denies; Intent: denies; Suicidal or Self-harm Behaviors:denies; Access to Firearms: denies; Other Risk Factors: denies; Protective Factors: supportive Risk of harming others: Aggression: low Homicide: low ASSESSMENT/PLAN: 1. 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 Generalized anxiety disorder - ICD9: 300.02, ICD10: F41.1 improving restart therapy Izzy Bonner MD sees Tirso Webb for therapy I spent a total of 26 minutes on the date of the service which included preparing to see the patient, [id number] patient care, completing clinical documentation, obtaining and/or reviewing separately obtained history, performing a medically appropriate examination, counseling and educating the patient/family/caregiver, ordering medications, tests, or procedures, communicating with other HCPs (not separately reported), independently interpreting results (not separately reported), communicating results to the patient/family/caregiver, and care coordination (not separately reported). This included counseling. Follow-up in: 1-2m or sooner Izzy Bonner MD documented in this encounter [facility] 05-17-2023 Note [facility] Medical Records Department [address] [place] [id number] History Physical Exam 05/17/23 0805 MR#: [id number] Acct: [id number] Name: VARSHA FLORES [facility] Rep #: [id number] : 1970 53 From: Triston Peter MD PCP: Dr. Roberta Burnette MD Status:[facility] Location: [place] [address] HPI - General General Date of Service: 05/17/23 Chief Complaint: Screening for intestinal cancer HPI Narrative VARSHA FLORES, is a 53 M who presents for screening colonoscopy today. He has not had a previous one. Family history is notable for a maternal uncle and maternal grandmother who had colon cancer. He presents via open access today. He enjoys good health. He is otherwise asymptomatic. [facility] Medical History Alcohol use Family hx of colon cancer Non-smoker Refusal of blood transfusions as patient is Gnosticism Wears glasses Home Medications omega-3 fatty acids-fish oil 360 mg-1,200 mg capsule (Fish Oil) 1 cap PO DAILY 04/03/23 [History Last Taken Unknown] bupropion HCl 100 mg tablet,12 hr sustained-release 100 mg PO DAILY 05/14/23 [History Last Taken 05/17/23] Allergy/AdvReac Type Severity Reaction Status Date / Time No Known Allergies Allergy Verified 05/17/23 07:55 Family History (Updated 04/03/23 @ 09:12 by Kavita Holliday) Mother Alcoholism Father Hypertension Grandmother Colon cancer Uncle Colon cancer Surgical History Achilles rupture History of Achilles tendon repair Social History adopted: No household members: spouse housing: house number of children: 0 current occupational status: employed 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 current occupational exposures/hazards: No pets and animals: Yes leisure activities: exercise, clubs and music history of recent travel: No sexually active: Yes Smoking Status: Never smoker alcohol intake: current details: weekly substance use type: does not use well-balanced diet: daily or most days caffeine: Yes eating out: 4 or more times/week during the past year weight has: increased > 10 lbs what type of physical activity do you participate in: weight training frequency: 3-4 times per week reed/zoroastrian: Jehovah Witness seatbelt use: always do you feel safe at home: Yes ROS Constitutional Constitutional: Reports systems reviewed and no addt'l complaints, except as documented Cardiovascular Cardiovascular: Denies chest pain Respiratory/Chest Respiratory/Chest: Denies shortness of breath at rest Gastrointestinal Gastrointestinal: Denies abdominal pain, change in bowel habits, hematochezia or melena Vital Signs Vital Signs Vital Signs: 05/17/23 07:58 05/17/23 07:58 Temperature 97.8 F Temperature Source Temporal Pulse Rate 71 Respiratory Rate 16 Respiratory Pattern Normal Blood Pressure 118/76 Blood Pressure Mean 90 Blood Pressure Source Monitor Blood Pressure Position Semi-Fowlers Blood Pressure Location Left Arm Pulse Ox 100 Oxygen Delivery Method Room Air Weight Weight: 174 lb 2.643 oz Body Mass Index (BMI) 25.7 Physical Exam Const alert, oriented x3 and no apparent distress General Appearance: cooperative and comfortable Eyes General Eye: normal appearance of both eyes Neck General: normal visual inspection Chest inspection of chest normal Resp Effort and Inspection: able to speak in complete sentences and symmetric chest movement Auscultation: clear to auscultation bilaterally Cardio regular rate and regular rhythm GI soft to palpation, non-tender and non-distended Extremity no calf tenderness Neuro oriented x3 Psych thought process normal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
== END | disposition home or self-care (01) ==
LOC: RAD 12:08
PROVIDERS: PCP Internal Medicine; Referring Provider Internal Medicine; Visit Provider Internal Medicine
DX: R05.3 Chronic cough (principal)
CPT/HCPCS: 71046

== ENCOUNTER → 2024-11-20 | Outpatient (CLI) | payer BC, SELFPAY ==
--- OUTSIDE RECORDS SUMMARY | 2024-11-20 10:30 | XMS RPT_ITS | CCD ---
Author Organization [facility] Care Team Providers Care Supervisor Tower Name Role Phone CURT OTT Attending Unavailable CURT OTT Admitting Unavailable HAL SCHRADER Primary Care Unavailable IZZY BONNER Attending Unavailable Dr. Roberta Burnette Primary Care Provider Kavita Holliday Attending Provider Unavailable Dr. Roberta Burnette Referring Provider Dr. Triston Peter Attending Provider Dr. Triston Peter Other Provider Hal Schrader MD Primary Care Provider Hal Schrader MD Primary Care Provider [phone] Unavailable Primary Care Provider Unavailabl e IZZY BONNER Attending Unavailable IZZY BONNER Attending Unavailable IZZY BONNER Attending Unavailable IZZY BONNER Attending Unavailable Dr. Roberta Burnette MD Primary Care Provider Dr. Roberta Burnette MD Attending Provider Dr. Roberta Burnette MD Referring Provider Roberta Burnette Primary Care Unavailable Roberta Burnette Attending Unavailable Roberta Burnette Primary Care Unavailable Roberta Burnette Referring Unavailable Roberta Burnette Attending Unavailable Roberta Burnette Attending Unavailable Roberta Burnette Primary Care Unavailable Roberta Burnette Referring Unavailable Allergies Allergy Classification Reported Allergen(s) Allergy Type Date of Onset Reaction(s) Facility (9 sources) Aspirin; Translations: [ASPIRIN] Drug Allergy 2 Intolerance [facility] Repository (9 sources) Ciprofloxacin; Translations: [CIPROFLOXACIN] Drug Allergy 2 Intolerance [facility] Repository (9 sources) PABA PLUS SUNSCREEN; Translations: [PABA PLUS SUNSCREEN] Propensity to adverse reactions to drug (disorder) 6 Swelling, Other: See Comments [facility] Repository Medications Current Medications Medication Drug Class(es) Dates Sig (Normalized) Sig (Original) 12 hr buPROPion hydrochloride 150 mg extended release oral tablet (15 sources) Aminoketone Start: 06-19-2024 End: 12-24-2024 take [...] / vitamin e 2 unt oral capsule (3 sources) Start: 023 [place]-3 Fatty Acids-Fish Oil (Fish Oil) 360-1,200 mg [...] 05-24-2015 Chronic Genitourinary symptoms and ill-defined conditions (11 sources) Nocturia; Translations: [Nocturia] Onset: 06-05-2015 06-25-2022 Episodic Headache; including migraine (7 sources) Migraine with aura; Translations: [Migraine with aura, not intractable, without status migrainosus] Onset: 05-24-2015 04-03-2021 Chronic Miscellaneous mental health disorders (4 sources) Pornographic stimulation; Translations: [Other sexual disorders] Onset: 09-25-2024 04-10-2024 Chronic Mood disorders (10 sources) Depressive disorder; Translations: [Depression] Onset: 09-25-2024 03-25-2023 Chronic Other lower respiratory disease (4 sources) Chronic cough; Translations: [Chronic cough] Onset: 10-29-2024 10-22-2024 Episodic Other nervous system disorders (7 sources) Expressive dysphasia; Translations: [Aphasia] Onset: 05-24-2015 05-24-2015 Chronic Other screening for suspected conditions (not mental disorders or infectious disease) (11 sources) Patient encounter status; Translations: [Encounter for screening for malignant neoplasm of colon] Onset: 05-24-2015 04-03-2023 Episodic Sickle cell anemia (11 sources) Sickle cell trait; Translations: [Sickle-cell trait] Onset: 06-08-2015 06-25-2022 Chronic Sprains and strains (6 sources) Rupture of right Achilles tendon; Translations: [...] Name Value Interpretation Reference Range Facil ity Chest PA and Lateralon 10-23 Chest PA and Lateral [facility] Imaging Services [address] [place] [address] Chest PA and Lateral MR#: [id number] Acct: [id number] Name: MARKVARSHA VELIZ MITCHEL Rep #: [id number] : 1970 M 54 From: [place] PCP: Dr. Roberta Burnette MD Status: REG CLI Study: Chest PA and Lateral Date of Exam: 10/23/24 Exam# [id number] Ordering Dr: Roberta Burnette MD PROCEDURE: CHEST PA AND LATERAL 10/23/2024 REASON FOR EXAM: CHRONIC COUGH TECHNIQUE: CHEST PA AND LATERAL COMPARISON: None FINDINGS: Hardware: None Heart: Heart size and configuration within normal limits. Mediastinum: Pulmonary vasculature and hilar structures are unremarkable. Trachea is midline. Lungs: Lungs are expanded and clear without evidence of atelectasis, consolidation, effusion or pneumonic infiltrate. Bones: No acute bony abnormality is noted. There is a subtle levoscoliosis of the lower thoracic spine and dextroscoliosis of the lumbar spine. Soft tissues are grossly unremarkable. RAD/Chest PA and Lateral IMPRESSION: No acute cardiopulmonary process is identified radiographically. Reading Location: [id number] CC: Dr. Roberta Burnette MD Gas Adjuster: Signed Normal [facility] MR/BMS.[facility] 10-22-2024 MR/BMS.[facility] [place] [place] [address] OFFICE VISIT Date of Service: 10/22/24 MR#: [id number] Acct: [id number] Name: MARKVARSHA Rep #: [id number] : 1970 Provider: Dr. 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 Consultant Required: No Accompanied by: Self Is patient in pain?: No Allergies No Known Allergies Allergy (Verified 10/22/24 07:58) Medications ???Medication ???Instructions ???Recorded ???Confirmed ???Type omega-3 fatty acids-fish oil 360 1 cap PO DAILY 04/03/23 10/22/24 H istory mg-1,200 mg capsule (Fish Oil) bupropion HCl 100 mg tablet,12 hr 100 mg PO DAILY 05/14/23 10/22/24 History sustained-release PFSH Medical History Refusal of blood transfusions as patient is Sikh Wears glasses Alcohol use Non-smoker Family hx of colon cancer Surgical History History of Achilles tendon repair Achilles rupture Family History Mother Alcoholism Father Hypertension Grandmother Colon cancer [...] weight training frequency: 3-4 times per week reed/bahai: Jehovah Witness seatbelt use: always do you feel safe at home: Yes HPI HPI Chief Complaint: Cough Details: VARSHA FLORES, is a 54 M who presents to the office today for an acute care follow-up visit. 54-year-old gentleman who has no longstanding medical problems per se other than some mild depressive symptoms. He is currently on bupropion 100 mg daily and has been stable. He takes omega-3 fish oil. He states over the last few years, he has been having symptoms of cough. He describes a largely nonproductive type of cough, and while he does have some symptoms through the day, they are less bothersome but most predominant at nighttime. And while largely nonproductive in the sense, he does occasionally get small amount of material and some throat clearing, and a sense of extra drainage in the evening time into the nighttime. This will wake him up several times through the night he states. He has not had high-grade fever or shaking chills. 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 Exposed to dusts, fumes over the years. Does not smoke never has. He has not had any significant major symptoms consistent with asthma over his lifetime. He notes that symptoms are worse in the air conditioning, worse at night. For thinking that this might be allergy related he has tried [id number] allergy medications to no avail. They had ductwork cleaned in the house. This is a mid 1900s constructed house, to his knowledge no molds. He does not have any significant reflux symptoms i.e. heartburn at any point. He does tend to eat later in the evenings, sometimes perhaps up to an hour or so before bed. Does not wake up and gagging on reflux material. He does do regular regimented physical fitness program. No chest tightness, shortness of breath, or asthma-like symptoms during those routines. Review of systems per chart. Physical exam. Vital signs on chart. EOMI. PERRLA. Sclera are clear. TMs are unremarkable with normal light reflexes. Canals are unremarkable. Posterior pharynx is unremarkable. Good dentition. No cervical or supraclavicular lymph nodes enlarged or tender. No clear thyromegaly. No thyroid nodules readily palpable. Lungs are without wheeze, rhonchi, rales. No upper airway stridorous sounds. No wheeze with forced expiration. No E/A changes are he (more content not included)... [facility] ANES POSTPROC EVALon 022 ANES POSTPROC EVAL HNO ID: [id number] Author: Wagner Holliday MD Service: ? Author Type: Anesthesiologist Type: Anesthesia Postprocedure Evaluation Filed: 02/21/2022 5:01 PM Note Text: POST ANESTHESIA EVALUATION NOTE : 1970 Procedure Summary Date: 02/21/22 Room / Location: [place] OR02 / [place] Anesthesia Start: 1036 Anesthesia Stop: 1227 [...] February 21, 2022 TIME: 5:01 PM CSN: [id number] [facility] ANES PRE-OPon 02-21-2022 ANES PRE-OP HNO ID: [id number] Author: Wagner Holliday MD Service: ? Author Type: Anesthesiologist Type: Anesthesia Preprocedure Evaluation Filed: 02/21/2022 10:30 AM Note Text: ANESTHESIOLOGY DAY OF SURGERY NOTE : 1970 Procedure Information Date/Time: 02/21/22 1015 Procedure: REPAIR TENDON ACHILLES (Right) Location: [place] OR02 / [place] OR Surgeons: Curt Ott DPM Estimated body [...] and consent discussed: yes. Patient / Responsible Republican agrees to proceed: yes Patient / Surrogate [...] Medications as of 02/21/2022 Medication Sig - oxyCODONE-acetaminophen (PERCOCET) 5-325 mg tablet Take 1-2 tablets [...] February 21, 2022 TIME: 10:26 AM CSN: [id number] [facility] BRIEF OP NOTon 02-21-2022 BRIEF OP NOT HNO ID: [id number] Author: Curt Ott DPM Service: Podiatry Author Type: Physician Type: Brief Op Note Filed: 02/21/2022 11:53 AM Note Text: BRIEF OPERATIVE / PROCEDURE NOTE LOG ID: [id number] SURGERY/PROCEDURE DATE: 02/21/2022 INCISION/PROCEDURE START TIME: 11:03 AM INCISION CLOSE/PROCEDURE END TIME: SURGEON(S)/PROCEDURALIS T(S) AND PRE SCHOOL MANAGER(S): Surgeon(s) and Role: * Curt Ott DPM - Primary * Jeff Fisher DPM - Resident - Assisting * Alina Gayle DPM - Resident - Assisting Registered Nurse Personal Vehicle Advisor: Linn Thomas RN SURGERY/PROCEDURE(S): Repair achilles tendon and use of interphyl connective matrix RT ANESTHESIA: General FINDINGS: ESTIMATED BLOOD LOSS: less then 20 cc SPECIMENS: none COMPLICATIONS: none PRE-OP/PRE-PROCEDURE DIAGNOSIS: Rt achilles tendon rupture , achilles pain right POST-OP/POST-PROCEDURE DIAGNOSIS: SIGNATURE: Curt Ott DPM PATIENT NAME: Varsha Flores DATE: February 21, 2022 TIME: 11:52 AM [facility] HISTORY PHYSICALon 2 HISTORY PHYSICAL HNO ID: [id number] Author: Curt Ott DPM Service: Podiatry Author [...] February 21, 2022 TIME: 9:49 AM Normal [facility] NURSING PROGon 02-21-2022 NURSING PROG HNO ID: [id number] Author: Karlie Pritchett RN Service: Nursing Author [...] bedside at completion of procedure. Report to RIVETER PORTABLE MACHINE Normal [facility] OPERATIVE NOon 02-21-2022 OPERATIVE NO HNO ID: [id number] Author: Curt Ott DPM Service: Podiatry Author Type: Physician Type: Operative Report Filed: 02/22/2022 9:12 AM Note Text: [facility] - Operative Report VARSHA FLORES : 1970 AGE: 52. SEX: M PATIENT TYPE: A HOSP SVC: PODI LOCATION: ATTENDING PHYSICIAN: Curt Ott D.P.M. CSN NUMBER: [id number] DATE OF SURGERY/PROCEDURE: 02/21/2022 INCISION/PROCEDURE START TIME: 11:03 AM INCISION CLOSE/PROCEDURE END TIME: 12:02 PM PREOPERATIVE DIAGNOSIS: Ruptured Achilles tendon, right ankle; ankle Achilles tendinosis; ankle pain. POSTOPERATIVE DIAGNOSIS: Same SURGEON: Curt Ott D.P.M. PRE SCHOOL MANAGER: Faye Fisher, PGY 3. 2. Second culture media laboratory assistant, Dr. Gayle, PGY 1. SURGERY/PROCEDURE: 1. [...] into the Achilles (more content not included)... [facility] Vital Signs Date Time Vital Sign Value Performing Clinician Faci lity 10-22-2024 08:03-0400 Body height 175.[address] Roberta Burnette MD Work Phone: [facility] 10-22-2024 08:03-0400 Body mass index (BMI) [Ratio] 25.5 kg/m2 Dr. Roberta Burnette MD Work Phone: [facility] 10-22-2024 08:03-0400 Body temperature 98.4 [degF] Dr. Roberta Burnette MD Work Phone: [facility] 10-22-2024 08:03-0400 Body weight 78.[address] Roberta Burnette MD Work Phone: [facility] 10-22-2024 08:03-0400 Diastolic blood pressure 80 mm[Hg] Dr. Roberta Burnette MD Work Phone: [facility] 10-22-2024 08:03-0400 Heart rate 70 /min Dr. Roberta Burnette MD Work Phone: [facility] 10-22-2024 08:03-0400 Respiratory rate 16 /min Dr. Roberta Burnette MD Work Phone: [facility] 10-22-2024 08:03-0400 SaO2% (BldA) [Mass fraction] 97 % Dr. Roberta Burnette MD Work Phone: [facility] 10-22-2024 08:03-0400 Systolic blood pressure 116 mm[Hg] Dr. Roberta Burnette MD Work Phone: [facility] 09-25-2024 13:07-0400 Body height 175.3 cm Izzy Bonner MD Work Phone: [facility] 09-25-2024 13:07-0400 Body mass index (BMI) [Ratio] 25.99 kg/m2 Izzy Bonner MD Work Phone: [facility] 09-25-2024 13:07-0400 Body weight 79.83 kg Izzy Bonner MD Work Phone: [facility] 09-25-2024 13:07-0400 Respiratory rate 16 /min Izzy Bonner MD Work Phone: [facility] 06-19-2024 14:03-0400 Body height 177.8 cm Izzy Bonner MD Work Phone: [facility] 06-19-2024 14:03-0400 Body mass index (BMI) [Ratio] 25.08 kg/m2 Izzy Bonner MD Work Phone: [facility] 06-19-2024 14:03-0400 Body weight 79.29 kg Izzy Bonner MD Work Phone: [facility] 06-19-2024 14:03-0400 Diastolic blood pressure 80 mm[Hg] Izzy Bonner MD Work Phone: [facility] 06-19-2024 14:03-0400 Heart rate 68 /min Izzy Bonner MD Work Phone: [facility] 06-19-2024 14:03-0400 Systolic blood pressure 129 mm[Hg] Izzy Bonner MD Work Phone: [facility] 04-10-2024 09:33-0500 Body height 175.3 cm Izzy Bonner MD Work Phone: [facility] 04-10-2024 09:33-0500 Body mass index (BMI) [Ratio] 25.1 kg/m2 Izzy Bonner MD Work Phone: [facility] 04-10-2024 09:33-0500 Body weight 77.11 kg Izzy Bonner MD Work Phone: [facility] 04-10-2024 09:33-0500 Respiratory rate 14 /min Izzy Bonner MD Work Phone: [facility] 08-29-2023 15:06-0400 Body height 175.3 cm Izzy Bonner MD Work Phone: [facility] 08-29-2023 15:06-0400 Body mass index (BMI) [Ratio] 25.1 kg/m2 Izzy Bonner MD Work Phone: [facility] 08-29-2023 15:06-0400 Body weight 77.11 kg Izzy Bonner MD Work Phone: [facility] 08-29-2023 15:06-0400 Respiratory rate 16 /min Izzy Bonner MD Work Phone: [facility] 05-17-2023 09:25-0500 Body temperature 97.6 [degF] Dr. Roberta Burnette Work Phone: [facility] 05-17-2023 09:25-0500 Diastolic blood pressure 71 mm[Hg] Dr. Roberta Burnette Work Phone: [facility] 05-17-2023 09:25-0500 Heart rate 62 /min Dr. Roberta Burnette Work Phone: [facility] 05-17-2023 09:25-0500 Respiratory rate 16 /min Dr. Roberta Burnette Work Phone: [facility] 05-17-2023 09:25-0500 SaO2% (BldA) [Mass fraction] 99 % Dr. Roberta Burnette Work Phone: [facility] 05-17-2023 09:25-0500 Systolic blood pressure 99 mm[Hg] Dr. Roberta Burnette Work Phone: [facility] 05-17-2023 07:58-0500 Body height 175.[address] Roberta Burnette Work Phone: [facility] 05-17-2023 07:58-0500 Body mass index (BMI) [Ratio] 25.7 kg/m2 Dr. Roberta Burnette Work Phone: [facility] 05-17-2023 07:58-0500 Body weight [address] Roberta Burnette Work Phone: [facility] 04-19-2023 13:13-0500 Body height 175.3 cm Izzy Bonner MD Work Phone: [facility] 04-19-2023 13:13-0500 Body weight 79.38 kg Izzy Bonner MD Work Phone: [facility] 04-19-2023 13:13-0500 Respiratory rate 16 /min Izzy Bonner MD Work Phone: [facility] 04-03-2023 09:15-0500 Body mass index (BMI) [Ratio] 26.6 kg/m2 Dr. Roberta Burnette Work Phone: [facility] 04-03-2023 09:15-0500 Body weight 81.[address] Roberta Burnette Work Phone: [facility] 02-17-2022 10:43-0500 Body temperature 97.8 [degF] [facility] Work Phone: 02-17-2022 10:43-0500 Diastolic blood pressure 86 mm[Hg] [facility] Work Phone: 02-17-2022 10:43-0500 Heart rate 78 /min [facility] Work Phone: 02-17-2022 10:43-0500 Respiratory rate 14 /min [facility] Work Phone: 02-17-2022 10:43-0500 SaO2% (BldA) [Mass fraction] 99 % [facility] Work Phone: 02-17-2022 10:43-0500 Systolic blood pressure 126 mm[Hg] [facility] Work Phone: 02-17-2022 10:33-0500 Body height 175.26 cm [facility] Work Phone: 02-17-2022 10:33-0500 Body mass index (BMI) [Ratio] 24.3 kg/m2 [facility] Work Phone: 02-17-2022 10:33-0500 Body weight 74.84 kg [facility] Work Phone: Encounters Encounter Date Encounter Type Care Provider Facility Start: 11-20-2024 ambulatory Roberta Burnette Facility :[facility] Start: 10-23-2024 End: 10-23-[address] Roberta Burnette MD Work Phone: -Radiology [facility] Start: 10-23-2024 End: 10-23-[address] Roberta Burnette MD -Radiology [facility] Work Phone: Start: 10-22-2024 End: 10-22-[address] Roberta Burnette MD -[place] [place] [facility] Work Phone: Start: 10-22-2024 End: 10-23-[address] Roberta Burnette MD Work Phone: -[place] [place] [facility] Start: 09-25-2024 End: 09-25-2024 ambulatory IZZY BONNER Facility:[facility] Start: 09-25-2024 End: 09-25-2024 Patient encounter procedure Izzy Bonner MD Work Phone: [facility] Comment on above: Generalized anxiety disorder (Primary Dx); Major depressive disorder, recurrent episode, moderate (HCC); Pornography addiction Start: 07-31-2024 End: 07-31-2024 ambulatory IZZY BONNER Facility:[facility] Start: 06-19-2024 End: 06-19-2024 ambulatory IZZY BONNER Facility:[facility] Start: 06-19-2024 End: 06-19-2024 Patient encounter procedure Izzy Bonner MD Work Phone: [facility] Comment on above: Major depressive dis order, recurrent episode, moderate (HCC) (Primary Dx); Generalized anxiety disorder; Pornography addiction Start: 04-10-2024 End: 04-10-2024 ambulatory IZZY BONNER Facility:[facility] Start: 04-10-2024 End: 04-10-2024 Patient encounter procedure Izzy Bonner MD Work Phone: [facility] Comment on above: Major depressive dis order, recurrent episode, moderate (HCC) (Primary Dx); Generalized anxiety disorder; Pornography addiction Start: 04-09-2024 End: 04-09-2024 Refill Izzy Bonner MD Work Phone: [facility] Comment on above: Refill Request Start: 08-29-2023 End: 08-29-2023 Patient encounter procedure Izzy Bonner MD Work Phone: [facility] Comment on above: Major depressive dis order, recurrent episode, moderate (HCC) (Primary Dx); Generalized anxiety disorder Start: 07-04-[address] 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 Jody Burnette Work Phone: [facility] Start: 05-17-2023 End: 05-17-2023 Admission to same day surgery center Dr. Roberta Burnette Work Phone: [facility] Work Phone: Start: 05-17-2023 End: 05-17-[address] Roberta Burnette Work Phone: [facility] Work Phone: Start: 04-19-2023 End: 04-22-2023 ambulatory IZZY BONNER Facility: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 Jody Burnette Work Phone: [facility] Work Phone: Start: 02-21-2022 End: 02-21-2022 [facility] Start: 02-17-2022 End: 02-17-2022 Emergency department patient visit [facility] Procedures Date Procedure Procedure Detail Performing Clinician Start: 10-23-2024 X-ray of chest, PA a nd lateral views Dr. Roberta Burnette MD Work Phone: Start: 05-17-[address] Roberta Burnette Work Phone: Start: 06-03-2015 Lipid 1996 panel - S jazz or Plasma Izzy Bonner MD Work Phone: Plan of Treatment Date Care Activity Detail Author Start: 05-24-2025 Urine microalbumin profile DTaP,Tdap,Td Vaccine (2 - Td or Tdap) [facility] Start: 12-07-2024 Influenza vaccination Influenza Vaccine (Season Ended) [facility] Start: 10-23-2024 End: 10-23-2024 Patient encounter procedure 10/23/2024 1:30 PM EDT Psych Office Visit [facility] [address] [place] [address] Izzy Bonner MD [address] [place] [address] [facility] Start: 07-31-2024 End: 07-31-2024 Patient encounter procedure 07/31/2024 1:00 PM EDT Psych Office Visit [facility] [address] [place] [address] Izzy Bonner MD [address] [facility] [address] [place] [address] [facility] Start: 04-10-2024 End: 04-10-2024 Patient encounter procedure 04/10/2024 9:30 AM EST Office Visit [facility] [address] [place] [address] Izzy Bonner MD [address] [facility] [facility] [address] [place] [address] [facility] Start: 12-08-2023 Covid-19 Vaccine ( season) Covid-19 Vaccine ( season) [facility] Start: 12-08-2023 Influenza vaccination [facility] Start: 05-17-2023 Patient discharge [facility] Start: 12-07-2022 Covid-19 Vaccine ( season) Covid-19 Vaccine ( season) [facility] Start: 12-07-2022 Influenza vaccination Influenza Vaccine (#1) [facility] Start: 2021 Pneumococcal Vaccine: 50+ (1 of 1 - PCV) Pneumococcal Vaccine: 50+ (1 of 1 - PCV) [facility] Start: 2021 Shingrix Vaccine (1 of 2) Shingrix Vaccine (1 of 2) [facility] Start: 02-26-2021 Lipid panel Lipid Screening [facility] Start: 06-03-2020 Prostate specific antigen measurement Prostate Cancer Screening Discussion [facility] Start: 06-03-2018 Diabetes Screening Diabetes Screening [facility] Start: 01-14-2016 Screening for malignant neoplasm of colon [facility] Start: 1990 Hepatitis B Vaccine (1 of 3 - 19+ 3-dose series) Hepatitis B Vaccine (1 of 3 - 19+ 3-dose series) [facility] Start: 1989 Hepatitis C screening Hepatitis C Screening [facility] Start: 1989 HIV screening HIV Screening [facility] Start: 1971 Hepatitis B Vaccine (1 of 3 - 3-dose series) Hepatitis B Vaccine (1 of 3 - 3-dose series) [facility] Colonoscopy [facility] Measurement of respiratory function [facility] Patient Education Achilles Tendon Rupture [facility] Work Phone: Patient referral [facility] Immunization Date Immunization Notes Care Provider Felicia calles 05-24-2015 tetanus toxoid, redu bryce diphtheria toxoid, and acellular pertussis vaccine, adsorbed Izzy Bonner MD Work Phone: [facility] Work Phone: Payers Date Payer Category Payer Self-pay 2024 Unknown [id number] 2018 [facility] PPO [id number] 2018 Unknown [id number] 2018 Unknown [employer] PPO [id number] 2018-Present [phone] [address] [place] [address] PPO [id number] Unknown [facility] PACKAGE PLAN [phone] [id number] Unknown [id number] Unknown [id number] Unknown [id number] Social History Date Type Detail Facility Start: 02-17-2022 End: 05-14-2023 Tobacco smoking status ARIS Unknown if ever smoked [facility] Start: 1970 Sex Assigned At Male [facility] Start: 04-19-2023 End: 07-04-2023 Tobacco smoking status NHIS Never smoked tobacco [facility] Work Phone: Start: 04-19-2023 Tobacco use and exposure Smokeless tobacco non-user [facility] Work Phone: Start: 04-19-2023 End: 04-10-2024 Alcohol intake Current drinker of alcohol (finding) [facility] Start: 04-19-2023 End: 07-31-2024 History of Social function [facility] Start: 04-19-2023 End: 07-31-2024 Tobacco use panel [facility] National Score (1-10 0), lower number is lower risk Not on file [facility] Start: 06-14-2015 Alcohol Comment 5-6 drinks weekly [facility] Start: 1970 Sex Assigned At Not on file [facility] Start: 09-25-2024 Alcoholic beverage intake Ex-drinker (finding) [facility] Medical Equipment Procedure Code Equipment Code Equipment Origin al Text Equipment Identifier Dates Xio-Ml-L-Kind Im plant - [id number] Start: 02-21-2022 Imp Pars Suture Tape System - [id number] Start: 02-21-2022 Internalbrace Li gament Augmentation Repair Kit [id number] Start: 02-21-2022 Goals Date Patient Goal Desired Activity /State Mental Status Date Assessment Result Facility 05-17-2023 Cognitive function Touch/Shaking [facility] Work Phone: Clinical Notes 02-21-2022 to 10-23-2024 Note Date & Type Note Facility 10-23-2024 Radiology Diagnostic study note [facility] Imaging Services [address]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
== END | disposition home or self-care (01) ==
LOC: PSN 09:34
PROVIDERS: PCP Internal Medicine; Referring Provider Internal Medicine; Visit Provider Internal Medicine
DX: R05.3 Chronic cough (principal)
CPT/HCPCS: 94060; 94726; 94729